=== PATIENT | female | born 1935 | race Caucasian/White ===

== ENCOUNTER 2020-02-09 10:23 | Emergency (ER) | payer MEDICARE, SELFPAY ==
[2020-02-09] VITALS (7 sets, daily range): BP systolic 138–181; BP diastolic 61–92; PULSE 61–78; RESP 11–17; TEMP 37.2; O2SAT 97–100; BMI 25.4
--- NOTE | 2020-02-09 10:46 | ECG_ITS ---
Test Reason : FALL Blood Pressure : / mmHG Vent. Rate : 062 BPM Atrial Rate : 062 BPM P-R Int : 162 ms QRS Dur : 112 ms QT Int : 444 ms P-R-T Axes : 089 -23 030 degrees QTc Int : 450 ms Normal sinus rhythm Voltage criteria for left ventricular hypertrophy Cannot rule out Septal infarct (cited on or before 07-SEP-2019) Abnormal ECG When compared with ECG of 20-SEP-2019 19:42, No significant changes seen Referred By: Vanessa Helton Electronically Signed By:STEPHANIE ART
--- NOTE | 2020-02-09 10:46 | CT_ITS ---
EXAMINATION: HEAD AND CERVICAL SPINE CT WITHOUT CONTRAST CLINICAL INFORMATION: Fall. Head and neck trauma and pain. COMPARISON: Previous head CT and cervical spine CT May 2017 TECHNIQUE: Axial images through the head and cervical spine without contrast. Sagittal and coronal reconstructions on the technologist workstation were performed. Patient dose for combined exam 8 8 1 mg/cm. This CT examination was performed using dose optimization techniques as appropriate, variously including the following: *Automated exposure control *Adjustment of mA and/or kV according to patient size (this includes techniques or standardized protocols for targeted exams where dose is matched to indication/reason for exam; i.e. extremities or head) *Use of iterative reconstruction technique FINDINGS: Head CT: There is no evidence of an extra-axial collection. There is no evidence of intra-axial or extra-axial hemorrhage. Ventricles and extra-axial CSF spaces are prominent suggestive of mild generalized atrophy. There is nonspecific periventricular white matter disease. 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 No mass, mass effect or acute infarct is seen. There are degenerative changes of the temporomandibular joints. Review at bone windows is otherwise normal. No skull fracture is seen. Visualized paranasal sinuses, mastoid air cells and middle ears are clear. Cervical spine CT: No fracture or dislocation is seen. There is mild 2 mm anterior subluxation of C3 with respect to C4. This is unchanged from previous exam. Bone alignment is otherwise normal. There is mild degenerative spondylosis at C3-C4-C5 and C5-C6. Disc spaces are normal. There is mild left-sided facet arthritis at C3-C4 C4-C5 and C5-C6. Prevertebral soft tissues are normal. The visualized lung apices are clear. CT/CT cervical spine wo con IMPRESSION: Head CT: No acute findings. 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 Cervical spine: Mild degenerative changes. No fracture or dislocation seen.
--- NOTE | 2020-02-09 10:46 | XR_ITS ---
EXAMINATION: THORACIC AND LUMBAR SPINE X-RAYS CLINICAL INFORMATION: Fall COMPARISON: Previous CTA of the chest August 2019 TECHNIQUE: 3 views of the thoracic spine and 3 views of the lumbar spine FINDINGS: Thoracic spine: There is increased thoracic kyphosis. There is mild curvature of the mid to lower thoracic spine to the right with apex at T8-T9. Bone alignment is otherwise normal. No fracture or dislocation is seen. There is evidence of multilevel degenerative spondylosis and degenerative disc disease, greatest in the lower thoracic spine. Paraspinal soft tissues are unremarkable. Lumbar spine: There is mild curvature of the lower thoracic and upper lumbar spine to the left with apex at T12-L1. No fracture or dislocation is seen. There is degenerative disc disease at L5-S1. There is lower lumbar spine facet arthritis. There is evidence of atherosclerotic disease. XR/XR lumbar spine 2-3V IMPRESSION: Mild scoliosis and degenerative changes. No fracture seen.
--- NOTE | 2020-02-09 10:46 | XR_ITS ---
EXAMINATION: THORACIC AND LUMBAR SPINE X-RAYS CLINICAL INFORMATION: Fall COMPARISON: Previous CTA of the chest August 2019 TECHNIQUE: 3 views of the thoracic spine and 3 views of the lumbar spine FINDINGS: Thoracic spine: There is increased thoracic kyphosis. There is mild curvature of the mid to lower thoracic spine to the right with apex at T8-T9. Bone alignment is otherwise normal. No fracture or dislocation is seen. There is evidence of multilevel degenerative spondylosis and degenerative disc disease, greatest in the lower thoracic spine. Paraspinal soft tissues are unremarkable. Lumbar spine: There is mild curvature of the lower thoracic and upper lumbar spine to the left with apex at T12-L1. No fracture or dislocation is seen. There is degenerative disc disease at L5-S1. There is lower lumbar spine facet arthritis. There is evidence of atherosclerotic disease. XR/XR thoracic spine 3V IMPRESSION: Mild scoliosis and degenerative changes. No fracture seen.
--- NOTE | 2020-02-09 10:46 | XR_ITS ---
EXAMINATION: XR BILATERAL HIPS WITH AP PELVIS CLINICAL INFORMATION: Fall. Bruising. COMPARISON: Right hip x-ray May 2017 TECHNIQUE: AP view of the pelvis and single views of each hip were obtained. FINDINGS: Bone alignment is normal. No fracture or dislocation is seen. There is mild arthritis at both hip joints with joint space narrowing and osteophyte formation. Bones of the pelvis are unremarkable. Soft tissues are unremarkable. XR/XR hips MIGUELITO min 3V IMPRESSION: No fracture or dislocation seen. Mild arthritis at the hip joints.
--- NOTE | 2020-02-09 10:46 | XR_ITS ---
EXAMINATION: XR RIBS, BILATERAL CLINICAL INFORMATION: Fall. Left rib pain. COMPARISON: Previous chest x-ray and chest CT a August 2019 TECHNIQUE: 3 views of the bilateral ribs and one view chest were obtained. FINDINGS: The cardiac and mediastinal contours are stable. There is an air-fluid level seen projecting over the heart questionable for an esophageal hernia. The lungs are clear. There is no pleural effusion or pneumothorax. XR/XR ribs BI 3V IMPRESSION: No evidence for acute disease in the chest. No rib fracture is seen.
--- NOTE | 2020-02-09 10:49 | ED.FALL ---
HPI - Fall General Chief Complaint: Fall Stated Complaint: fall Time Seen by Provider: 02/09/20 10:36 Source: patient and EMS Mode of arrival: EMS History of Present Illness HPI Narrative: 84-year-old female with a past medical history of CHF, COPD, hypertension, renal failure, ovarian tumor, baby ASA BIBA c/o back pain, neck pain, and L breast pain s/p fall 4 days ago. Admits fell due to unknown reason s/p unlocking door with her walker when son was bringing in groceries, fell backwards, hit head, denies LOC. Denies symptoms prior to fall, however, does not remember why she fell. Has been ambulatory since incident with walker. Denies headache, vision changes, lightheadedness/dizziness, SOB/CP, abdominal pain, nausea/vomiting, weakness MD complaint: fall Onset (ago): day(s) Related Data Allergies Allergy/AdvReac Type Severity Reaction Status Date / Time blue dye [BLUE DYE] Allergy Unknown RASH Unverified 11/18/19 15:35 codeine [CODEINE] Allergy Unknown RASH Unverified 11/18/19 15:35 penicillin G [PENICILLIN G] Allergy Unknown RASH Unverified 11/18/19 15:35 morphine AdvReac Unknown Verified 02/09/20 10:35 Review of Systems Review of Systems: Constitutional: No Weight loss, No Fever, No Chills ENT/Mouth: No Hearing loss, No Ear Pain, No Nasal Congestion, No Sinus Pain, No Hoarseness, No sore throat Eyes: No Eye Pain, No Vision Changes Cardiovascular: +L chest wall/breats pain, No SOB, No Dyspnea on Exertion, No Edema Respiratory: No Cough, No Dyspnea Gastrointestinal: No Nausea, No Vomiting, No Diarrhea,No Abdominal pain Musculoskeletal: + low back and neck pain, No Myalgias, No Joint Swelling Skin: + back ecchymosis, No rash Neuro: No Weakness, + chronic intermittent tingling in upper extremities, No Paresthesias, No Loss of Consciousness, No Dizziness, No Headache Yes all other systems are reviewed and are negative Neurologic: Denies Sensory deficit (Neuro) [facility] Past Medical History Attestation statement: The following information was validated with the patient. Medical History (Updated 02/09/20 @ 15:22 by IDA Stapleton) CHF (congestive heart failure) COPD (chronic obstructive pulmonary disease) HTN (hypertension) Kidney failure Ovarian tumor Surgical History History of appendectomy Social History Social History Advance Directives: No Advance Directives Information Provided: Yes Physical Exam Vital Signs: Vital Signs: Last Vital Signs Temp 99.0 F 02/09/20 10:36 Pulse 66 02/09/20 14:39 Resp 11 L 02/09/20 14:39 BP 138/61 02/09/20 14:39 Pulse Ox 100 02/09/20 14:39 Body Mass Index 25.4 Const: General: cooperative and healthy appearing Orientation/consciousness: patient oriented x3 Limitations: no limitations HENMT: Head: Yes normal to inspection Ears: hearing grossly normal bilaterally General nose exam: Normal external nose present Face and sinus: Yes normal facial exam Mouth: Normal oral and palatal mucosa present Throat: Yes posterior oropharynx normal Eyes: General: appearance normal, both eyes and all related structures Pupils: Equal, round and reactive pupils present EOM: EOMs intact bilaterally Neck: Other: + nonlocalized midline C-spine tenderness, no step-offs Neck: Yes normal visual inspection and Yes no meningeal signs Chest: Other: + left breast with small area of ecchymosis and tenderness to palpation. No crepitus Chest palpation & inspection: no crepitus Resp: Effort & Inspection: normal respiratory effort Auscultation: clear to auscultation bilaterally, no rhonchi and no wheezes Cardio: Rate: regular rate Heart sounds: S1 normal heart sound present and S2 normal heart sound present GI: Inspection: Yes normal to inspection Palpation (GI): Soft to palpation, nontender, no guarding and not rigid Back/Spine/Pelvis: Other: + non localized midline thoracic spinous tenderness throughout + midline lumbar spinous tenderness with swelling and ecchymosis noted. No step-off appreciated Skin: Other: + large ecchymosis noted to lumbar spine extending over bilateral hips Rashes: no rashes Wounds: no wounds Neuro: Other: No saddle anesthesia General: patient oriented x3, tone normal, moves all extremities, no meningeal signs, no focal motor deficits and CN's II-XI intact bilaterally Cranial nerves: Yes Equal, round and reactive pupils present Motor exam (neuro): 5/5 motor strength present throughout Sensory Exam: No Sensory deficit (Neuro) Extrem: Other: FROM to all 4 extremities intact General: Yes normal to inspection Course Course Course Narrative: -1137--EKG NSR w/o ischemic changes -1334- BUN elevated (similar to priors), labs otherwise unremarkable/at patient's baseline. Troponin negative -imaging studies unremarkable > patient ambulating with some difficulty in the ED. Reports multiple falls at home. Will have case management/PT evaluate patient -orthostatic vital signs unremarkable -patient was evaluated by PT and Case Management, already has [facility] at home, physical therapy feels patient can resume those services and is safe to be discharged home. Patient will be picked up from ED by son who gets out of work at 5:00 p.m. MDM - Fall MDM Narrative Medical decision making narrative: 84-year-old female with a past medical history of CHF, COPD, hypertension, renal failure, ovarian tumor, baby ASA BIBA c/o back pain, neck pain, and L breast pain s/p fall 4 days ago. On exam VSS, NAD/well-appearing, physical exam as above. Concern for ICH/fractures vs metabolic abnormalities. Lower concern for infectious etiology or ACS Plan: EKG, labs, UA, imaging, reassess Lab Data Result diagrams: 02/09/20 12:11 02/09/20 12:10 Labs: Lab Results 02/09/20 02/09/20 02/09/20 Range/Units 12:10 12:10 12:10 WBC (4.8-10.8) X10*3/uL RBC (4.20-5.50) X10*6/uL Hgb (12.0-16.0) g/dl Hct (37-47) % MCV (80-98) fL MCH (27.0-33.0) pg MCHC (31.0-35.0) g/dl RDW (11.0-16.0) % Plt Count (160-400) X10*3/uL MPV (9.4-12.3) fL Immature Gran % (Auto) (0.0-0.4) % Neut % (Auto) (45-73) % Lymph % (Auto) (20-40) % Barren % (Auto) (2-11) % Eos % (Auto) (0-4) % Baso % (Auto) (0-2) % Lymph # (Auto) (1.2-4.9) X10*3/uL Barren # (Auto) (0.1-1.2) X10*3/uL Eos # (Auto) (0.0-0.4) X10*3/uL Baso # (Auto) (0.0-0.2) X10*3/uL Abs Immat Gran (auto) (0.00-0.03) X10*3/uL Absolute Neuts (auto) (2.0-8.3) X10*3/uL Absolute Nucleated RBC (0.0-0.012) X10*3/uL Nucleated RBC % (auto) (0.0-0.2) /100WBC Hold Blue Top SEE NOTE Sodium 137 (135-145) mmol/L Potassium 3.9 (3.3-5.1) mmol/l Chloride 104 (96-108) mmol/L Carbon Dioxide 22 (22-29) mmol/L Anion Gap 15 (12-20) BUN 26 H (9-16) mg/dL Creatinine 0.78 (0.5-1.4) mg/dL Estim Creat Clear Calc 43.9 Estimated GFR > 60 Random Glucose 76 (60-115) mg/dL Calcium 9.4 (8.4-10.2) mg/dL Magnesium 2.1 (1.6-2.6) mg/dL Total Bilirubin 0.4 (0.0-1.0) mg/dL Direct Bilirubin 0.2 (0.0-0.5) mg/dL AST 15 (5-31) U/L ALT 11 (0-31) U/L Alkaline Phosphatase 60 (39-117) U/L Troponin I High Sens 4.9 (<3.5-17.0) ng/L Total Protein 6.9 (6.5-8.0) g/dL Albumin 3.7 (3.5-5.0) g/dL Urine Color Urine Appearance Urine pH (5.0-8.0) Ur Specific Grant (1.005-1.025) Urine Protein (NEG-TRACE) MG/DL Urine Glucose (UA) (NEG) MG/DL Urine Ketones (NEG) MG/DL Urine Blood (NEG) Urine Nitrite (NEG) Ur Leukocyte Esterase (NEG) 02/09/20 02/09/20 Range/Units 12:11 13:39 WBC 11.2 H (4.8-10.8) X10*3/uL RBC 4.21 (4.20-5.50) X10*6/uL Hgb 10.5 L (12.0-16.0) g/dl Hct 33.7 L (37-47) % MCV 80.0 (80-98) fL MCH 24.9 L (27.0-33.0) pg MCHC 31.2 (31.0-35.0) g/dl RDW 16.7 H (11.0-16.0) % Plt Count 275 (160-400) X10*3/uL MPV 9.0 L (9.4-12.3) fL Immature Gran % (Auto) 0.9 H (0.0-0.4) % Neut % (Auto) 68.3 (45-73) % Lymph % (Auto) 19.1 L (20-40) % Barren % (Auto) 8.4 (2-11) % Eos % (Auto) 2.8 (0-4) % Baso % (Auto) 0.5 (0-2) % Lymph # (Auto) 2.1 (1.2-4.9) X10*3/uL Barren # (Auto) 0.9 (0.1-1.2) X10*3/uL Eos # (Auto) 0.3 (0.0-0.4) X10*3/uL Baso # (Auto) 0.1 (0.0-0.2) X10*3/uL Abs Immat Gran (auto) 0.10 H (0.00-0.03) X10*3/uL Absolute Neuts (auto) 7.6 (2.0-8.3) X10*3/uL Absolute Nucleated RBC 0.000 (0.0-0.012) X10*3/uL Nucleated RBC % (auto) 0.0 (0.0-0.2) /100WBC Hold Blue Top Sodium (135-145) mmol/L Potassium (3.3-5.1) mmol/l Chloride (96-108) mmol/L Carbon Dioxide (22-29) mmol/L Anion Gap (12-20) BUN (9-16) mg/dL Creatinine (0.5-1.4) mg/dL Estim Creat Clear Calc Estimated GFR Random Glucose (60-115) mg/dL Calcium (8.4-10.2) mg/dL Magnesium (1.6-2.6) mg/dL Total Bilirubin (0.0-1.0) mg/dL Direct Bilirubin (0.0-0.5) mg/dL AST (5-31) U/L ALT (0-31) U/L Alkaline Phosphatase (39-117) U/L Troponin I High Sens (<3.5-17.0) ng/L Total Protein (6.5-8.0) g/dL Albumin (3.5-5.0) g/dL Urine Color STRAW Urine Appearance HAZY Urine pH 8.5 H (5.0-8.0) Ur Specific Grant 1.015 (1.005-1.025) Urine Protein NEG (NEG-TRACE) MG/DL Urine Glucose (UA) NEG (NEG) MG/DL Urine Ketones NEG (NEG) MG/DL Urine Blood NEG (NEG) Urine Nitrite NEG (NEG) Ur Leukocyte Esterase NEG (NEG) Discharge Plan Discharge Clinical Impression: Ecchymosis Back pain Qualifiers: Back pain location: back pain in unspecified location Chronicity: acute Back pain laterality: unspecified Qualified Code(s): M54.9 - Dorsalgia, unspecified Fall Qualifiers: Encounter type: initial encounter Qualified Code(s): W19.XXXA - Unspecified fall, initial encounter Patient Disposition: Home, Self-Care Instructions: Fall Prevention for Older Adults (ED) Additional Instructions: Your blood work, urine, and imaging studies were reassuring today in the ED Take Tylenol home for pain Ice painful areas Make sure your using her walker at home to ambulate Your home health aide and therapy services will continue to home to your house If you continue to fall, pain becomes unbearable, you have weakness, headache, nausea or vomiting return to the ED Referrals: Eldon Matute MD [Primary Care Provider] - 2 days
[2020-02-09 12:18] LABS: MANUAL DIFF FLAG NO
[2020-02-09 12:21] LABS: Basophils Absolute Auto 0.1 X10*3/uL (0.0-0.2); Basophils Percent Auto 0.5 % (0-2); Eosinophils Absolute Auto 0.3 X10*3/uL (0.0-0.4); Eosinophils Percent Auto 2.8 % (0-4); Hematocrit 33.7 % (37-47); Hemoglobin 10.5 g/dl (12.0-16.0); Imm Gran Pct Auto 0.9 % (0.0-0.4); Lymphocytes Absolute Auto 2.1 X10*3/uL (1.2-4.9); Lymphocytes Percent Auto 19.1 % (20-40); Mean Corpuscular HGB Conc 31.2 g/dl (31.0-35.0); Mean Corpuscular Hemoglobin 24.9 pg (27.0-33.0); Monocytes Absolute Auto 0.9 X10*3/uL (0.1-1.2); Monocytes Percent Auto 8.4 % (2-11); Neutrophils Absolute Auto 7.6 X10*3/uL (2.0-8.3); Neutrophils Percent Auto 68.3 % (45-73); Platelet Count 275 X10*3/uL (160-400); Red Blood Count 4.21 X10*6/uL (4.20-5.50); Red Cell Distribution Width 16.7 % (11.0-16.0); White Blood Count 11.2 X10*3/uL (4.8-10.8)
--- NOTE | 2020-02-09 12:30 | PC.NURSE ---
Daughter Daughter in [place] phone number [phone]
[2020-02-09 12:59] LABS: Alanine Aminotransferase 11 U/L (0-31); Albumin Level 3.7 g/dL (3.5-5.0); Alkaline Phosphatase 60 U/L (39-117); Anion Gap 15 (12-20); Aspartate Amino Transferase 15 U/L (5-31); Bilirubin Direct 0.2 mg/dL (0.0-0.5); Bilirubin Total 0.4 mg/dL (0.0-1.0); Blood Urea Nitrogen 26 mg/dL (9-16); Calcium 9.4 mg/dL (8.4-10.2); Carbon Dioxide 22 mmol/L (22-29); Chloride 104 mmol/L (96-108); Creatinine Clr Calc Pharmacy 43.9; Estimated Glomerular Filt Rate > 60; Glucose Random 76 mg/dL (60-115); Magnesium 2.1 mg/dL (1.6-2.6); Potassium 3.9 mmol/l (3.3-5.1); Sodium 137 mmol/L (135-145); Total Protein 6.9 g/dL (6.5-8.0)
[2020-02-09 13:01] LABS: Troponin-I High Sensitivity 4.9 ng/L (<3.5-17.0)
[2020-02-09 13:47] LABS: Appearance Urine HAZY; Color Urine STRAW; Glucose Urine UA NEG (NEG); Leukocyte Esterase Urine NEG (NEG); Nitrite Urine NEG (NEG); PH 8.5 (5.0-8.0); Specific Gravity - Urine 1.015 (1.005-1.025); Urine Blood NEG (NEG); Urine Ketones NEG (NEG); Urine Protein NEG (NEG-TRACE)
--- NOTE | 2020-02-09 14:25 | MHC.CM.ED ---
Addendum entered by Gely Soares 02/09/20 14:31: PT is 2x/wk. Original Note: Met with pt. A&O x3. Very pleasant and talkative. S/P fall on Friday. Does not want to go to SNF. Was at [facility] for 3 months. Presently has home PT through [facility] 2x?wk and has home health aides 3x/wk through [facility]. PT evaluation recommends home with resumption of present services. Pt uses walker at home and has a shower chair with a rail. Son lives with her and is home after 5pm. Referral to [facility] to verify services. Will monitor for d/c needs
--- NOTE | 2020-02-09 15:31 | MHC.CM.ED ---
Services with [facility] [place] are active. Will accept pt. PT recommends home with resumption of services. All clinicals sent to [facility]. Spoke with daughter, Mary,([phone]) who is her HCP. Updated with plan. Is agreeable. Son, Tai will provide transportation home at 1630. RN and Provider aware.
== END 2020-02-09 17:10 | disposition home or self-care (01) ==
PROVIDERS: Physician Assistant; Emergency Provider Emergency Medicine; PCP Family Medicine
DX: S20.02XA Contusion of left breast, initial encounter (principal); W18.30XA Fall on same level, unspecified, initial encounter; M54.9 Dorsalgia, unspecified; I13.0 Hypertensive heart and chronic kidney disease with heart failure and stage 1 through stage 4 chronic kidney disease, or unspecified chronic kidney disease; N18.9 Chronic kidney disease, unspecified; I50.9 Heart failure, unspecified; Y93.9 Activity, unspecified; Y92.019 Unspecified place in single-family (private) house as the place of occurrence of the external cause; Y99.9 Unspecified external cause status
CPT/HCPCS: 36415; 70450; 71110; 72072; 72100; 72125; 72170; 73522; 80048; 80076; 81003; 83735; 84484; 85025; 93005; 97161; 99284

== ENCOUNTER 2021-02-08 10:13 | Inpatient (IN) | payer MEDICARE, SELFPAY ==
[2021-02-08] VITALS (13 sets, daily range): BP systolic 147–170; BP diastolic 52–70; PULSE 86–94; RESP 16–24; TEMP 36.7–37.3; O2SAT 92–100; BMI 30.2; BMI 33.3
--- NOTE | ~2021-02-08 | CT_ITS ---
EXAMINATION: CT ABDOMEN AND PELVIS WITHOUT CONTRAST CLINICAL INFORMATION: Abdominal pain and vomiting COMPARISON: 09/20/2019 TECHNIQUE: Multidetector volumetric imaging was performed from the superior aspect of the liver through the pubic symphysis. Sagittal and coronal reformatted images were obtained on the technologist's workstation. This CT examination was performed using dose optimization techniques as appropriate, variously including the following: *Automated exposure control *Adjustment of mA and/or kV according to patient size (this includes techniques or standardized protocols for targeted exams where dose is matched to indication/reason for exam; i.e. extremities or head) *Use of iterative reconstruction technique DLP: 519 mGy-cm FINDINGS: LUNG BASES: Minimal bibasilar atelectasis. The heart is enlarged with coronary artery calcifications. Moderate hiatal hernia noted. LIVER, GALLBLADDER, AND BILIARY TREE: The liver is normal in size, shape, and attenuation. No focal hepatic lesion. Cholecystectomy. The common bile duct is prominent, measuring 1 cm. No ductal filling defect. Persistent intrahepatic ductal dilatation also noted. PANCREAS: Moderate atrophy with no focal abnormality. SPLEEN: Unremarkable. ADRENAL GLANDS: Unremarkable. KIDNEYS AND URETERS: The kidneys are normal in size, shape, and attenuation. No hydronephrosis, hydroureter, or calculi seen. No perinephric stranding. Exophytic simple cyst at the upper pole of the left kidney. Simple cyst at the upper pole of the right kidney. No follow-up imaging recommended. Calcifications peripherally along the lower pole of the left kidney. BLADDER: Unremarkable. GASTROINTESTINAL TRACT: Moderate hiatal hernia. The stomach is otherwise unremarkable. Normal caliber small bowel. No obstruction. No colonic wall thickening or acute inflammatory change. No free air or free fluid. ABDOMINAL WALL: Fat-containing ventral abdominal wall hernia. LYMPH NODES: Normal. VASCULAR: Normal caliber aorta with mild atherosclerotic calcification. PELVIC VISCERA: The uterus is not seen. No adnexal mass. OSSEOUS STRUCTURES: No acute or suspicious osseous abnormality. Degenerative changes of the spine. CT/CT abdomen pelvis wo con IMPRESSION: No acute findings in the abdomen or pelvis. No obstruction. No inflammatory changes. Moderate hiatal hernia noted. This is similar to previous. Fleischner guidelines were followed.
--- NOTE | ~2021-02-08 | XR_ITS ---
EXAMINATION: XR CHEST CLINICAL INFORMATION: Pain COMPARISON: 02/09/2020 TECHNIQUE: Frontal view of the chest was obtained. FINDINGS: Lung volumes are low. Opacity in the retrocardiac region likely corresponds to the known hiatal hernia. No dense consolidation. No edema. No significant effusion. No pneumothorax. The cardiomediastinal silhouette is unchanged. No acute osseous abnormality. XR/XR chest 1V IMPRESSION: Hiatal hernia noted. No acute pulmonary finding.
--- NOTE | ~2021-02-08 | CT_ITS ---
EXAMINATION: CT HEAD WITHOUT CONTRAST CLINICAL INFORMATION: Headache. Dizziness. COMPARISON: 02/09/2020 TECHNIQUE: Contiguous axial imaging was performed from the skull base to vertex without intravenous contrast. This CT examination was performed using dose optimization techniques as appropriate, variously including the following: * Automated exposure control * Adjustment of mA and/or kV according to patient size (this includes techniques or standardized protocols for targeted exams where dose is matched to indication/reason for exam; i.e. extremities or head) Use of iterative reconstruction technique DLP: 653 mGy-cm. FINDINGS: There is no evidence of acute intracranial hemorrhage or territorial infarction. No abnormal mass effect or midline shift is seen. Souza to white matter differentiation is well preserved. No extra-axial fluid collections are identified. No hydrocephalus. Proportional prominence of the ventricles and sulcal spaces is consistent with mild volume loss. Patchy periventricular and deep white matter hypoattenuation is consistent with mild small vessel ischemic changes. 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 The osseous structures and soft tissues are normal. The mastoid air cells and visualized portions of the paranasal sinuses are well aerated. CT/CT head/brain wo con IMPRESSION: No acute intracranial pathology. Mild chronic volume loss with small vessel ischemic change.
--- NOTE | 2021-02-08 10:35 | ECG_ITS ---
Test Reason : cp Blood Pressure : / mmHG Vent. Rate : 089 BPM Atrial Rate : 089 BPM P-R Int : 188 ms QRS Dur : 116 ms QT Int : 384 ms P-R-T Axes : 087 -18 086 degrees QTc Int : 467 ms Normal sinus rhythm Left ventricular hypertrophy with QRS widening and repolarization abnormality ( R in aVL , [place] product ) Abnormal ECG When compared with ECG of 09-FEB-2020 11:32, Minimal criteria for Septal infarct are no longer Present Referred By: Kanchan Albarado Electronically Signed By:Bjorn Man
--- NOTE | 2021-02-08 10:51 | ED.GENADULT ---
HPI - General Adult General Chief complaint: General Medical Stated complaint: THROAT & EAR PAIN,+ VACCINES Time Seen by Provider: 02/08/21 10:35 Source: patient Mode of arrival: EMS Limitations: no limitations History of Present Illness MD complaint: ear pain, sore throat, dizziness, nausea, upper abdominal pain Onset (ago): week(s) (2) Location: head, mouth, chest and abdomen Radiation: non-radiation Severity: moderate Quality: aching Pain Consistency: constant Relieving factors: none Exacerbating factors: movement (states she is too weak she cannot get up and she is home alone all day) Associated symptoms: chest pain, loss of appetite, malaise, nausea/vomiting and weakness Treatments prior to arrival: none Related Data Home Medications Medication Instructions Recorded Confirmed albuterol sulfate 90 mcg/actuation 2 puff INHALATION Q4H PRN 02/08/21 02/08/21 aerosol inhaler amlodipine 5 mg tablet 1 tab PO DAILY 02/08/21 02/08/21 aspirin 81 mg tablet,delayed 1 tab PO DAILY 02/08/21 02/08/21 release fluoxetine 20 mg capsule 1 cap PO DAILY 02/08/21 02/08/21 furosemide 20 mg tablet 1 tab PO DAILY 02/08/21 02/08/21 gabapentin 300 mg capsule 1 cap PO TID 02/08/21 02/08/21 loratadine 10 mg tablet 1 tab PO DAILY 02/08/21 02/08/21 melatonin 3 mg tablet 2 tab PO BEDTIME 02/08/21 02/08/21 metoprolol succinate 25 mg 1 tab PO DAILY 02/08/21 02/08/21 tablet,extended release 24 hr montelukast 10 mg tablet 1 tab PO DAILY 02/08/21 02/08/21 ropinirole 0.25 mg tablet 1 tab PO BEDTIME 02/08/21 02/08/21 Allergies Allergy/AdvReac Type Severity Reaction Status Date / Time blue dye [BLUE DYE] Allergy Unknown RASH Unverified 11/18/19 15:35 codeine [CODEINE] Allergy Unknown RASH Unverified 11/18/19 15:35 penicillin G [PENICILLIN G] Allergy Unknown RASH Unverified 11/18/19 15:35 morphine AdvReac Unknown Verified 02/09/20 10:35 Review of Systems Review of Systems: Constitutional : No Weight loss, No Fever, No Chills, pos Fatigue, pos Malaise ENT/Mouth : pos sore throat, No Rhinorrhea, pos ear pain Eyes: No Eye Pain, No Swelling, No Redness Cardiovascular : pos Chest Pain, No SOB, No Dyspnea on Exertion, No Orthopnea, No Edema, No Palpitations Respiratory : No Cough, No Sputum, No Wheezing Gastrointestinal : pos Nausea, No Vomiting, No Diarrhea, No Constipation,pos abdominal Pain, No Hematochezia, No Melena Genitourinary : No Dysuria, No Urinary Frequency, No Hematuria, Musculoskeletal : No joint pain, No Myalgias, No Joint Swelling Skin : No Skin Lesions, No rash Neuro : pos Weakness, No Numbness, pos Dizziness, pos Headache Psych : No Anxiety/Panic, No Depression Heme/Lymph: No Bruising, No Bleeding,No Lymphadenopathy Endocrine : No Polyuria, No Polydipsia All other systems reviewed and are negative [facility] Past Medical History Medical History (Updated 02/08/21 @ 14:30 by IDA Lugo) CHF (congestive heart failure) COPD (chronic obstructive pulmonary disease) COVID-19 HTN (hypertension) Ovarian tumor Surgical History (Updated 02/08/21 @ 14:30 by IDA Lugo) History of appendectomy History of cholecystectomy History of kidney surgery Family History Family History (Updated 02/08/21 @ 14:41 by IDA Lugo) Father PUD (peptic ulcer disease) Social History Social History (Updated 02/08/21 @ 14:41 by IDA Lugo) Household Members: Family Alcohol intake: current Alcohol intake frequency: a few times a week Alcohol type: wine Patient Tobacco Use Status: Former Tobacco user Use of substances other than those prescribed or required for medical reasons: No Advance Directives: Yes Advance Directives on File: Yes Advance Directives Date on File: 02/09/20 Physical Exam Vital Signs: Vital Signs: Last Vital Signs Temp 98.5 F 02/08/21 14:38 Pulse 94 02/08/21 14:38 Resp 20 02/08/21 14:38 BP 164/52 H 02/08/21 14:38 Pulse Ox 100 02/08/21 14:01 BMI result Body Mass Index 30.2 Appearance: Alert. Oriented X3. No acute distress. Anxious Eyes: Pupils equal, round and reactive to light. ENT: Pharynx normal. Bilateral TMs normal Neck: Normal inspection. Neck supple. CVS: Normal heart rate and rhythm. Pulses normal. Respiratory: No respiratory distress. Breath sounds normal. Abdomen: Soft and nontender. Rectal: light brown stool Skin: Skin warm and dry. pale skin color. Normal skin turgor. Extremities: No lower extremity edema. No calf ttp Neuro: Oriented X 3. No motor deficit. No sensory deficit. Course Course Course Narrative: after H/H resulted the patient now states that she has had intermittent black stools x 2 weeks and in [place] 1 year ago was told she had GIB and was transfused cannot tell me the name of the hospital colonoscopy 2 years ago 2 UPRBCs ordered, BP stable, protonix gtt started c/o black stools and upper abdominal pain x 2 weeks patient only takes tylenol OTC Dr. Calderón aware Procedures EJ/Peripheral Line Neck R: Time Out Performed: Yes Skin Cleansed in Sterile Fashion: Yes Size (gauge): 18 IV Secured and Dressing Applied: No Patient Tolerated Procedure: well and no complications Medical Decision Making [facility] Narrative Medical decision making narrative: 85 yo female from home hx of COPD, HTN, CHF, here with c/o 2 weeks of feeling sick - grossly positive ROS - ear pain, sore throat, nausea, dizziness, abdominal pain, chest pain, dizziness when standing vaccinated against COVID and recovered from COVID last year - she is very fixated about going home today and is adamant she cannot be at home as she is alone for most of the day and her son cannot take care of her. At this time labs, EKG, CT head for dizziness, CT abdomen given pain and nausea, FLU/RSV. Dispo per results and findings. Lab Data Result diagrams: 02/08/21 11:42 02/08/21 11:42 Labs: Lab Results 02/08/21 02/08/21 02/08/21 Range/Units 11:42 11:42 11:42 WBC 10.6 (4.8-10.8) X10*3/uL RBC 2.64 L (4.20-5.50) X10*6/uL Hgb 4.8 L* (12.0-16.0) g/dl Hct 17.2 L* (37.0-47.0) % MCV 65.2 L (80.0-98.0) fL MCH 18.2 L (27.0-33.0) pg MCHC 27.9 L (31.0-35.0) g/dl RDW 20.2 H (11.0-16.0) % Plt Count 305 (160-400) X10*3/uL MPV 8.6 L (9.4-12.3) fL Immature Gran % (Auto) 0.7 H (0.0-0.4) % Neut % (Auto) 77.3 H (45-73) % Lymph % (Auto) 9.8 L (20-40) % [place] % (Auto) 9.4 (2-11) % Eos % (Auto) 2.3 (0-4) % Baso % (Auto) 0.5 (0-2) % Lymph # (Auto) 1.0 L (1.2-4.9) X10*3/uL [place] # (Auto) 1.0 (0.1-1.2) X10*3/uL Eos # (Auto) 0.2 (0.0-0.4) X10*3/uL Baso # (Auto) 0.1 (0.0-0.2) X10*3/uL Abs Immat Gran (auto) 0.07 H (0.00-0.03) X10*3/uL Absolute Neuts (auto) 8.2 (2.0-8.3) x10*3/uL Absolute Nucleated RBC 0.020 H (0.0-0.012) X10*3/uL Nucleated RBC % (auto) 0.2 (0.0-0.2) /100WBC Sodium 137 (135-145) mmol/L Potassium 4.2 (3.3-5.1) mmol/L Chloride 107 (96-108) mmol/L Carbon Dioxide 23 (22-29) mmol/L Anion Gap 11 L (12-20) BUN 24 H (9-16) mg/dL Creatinine 0.89 (0.5-1.4) mg/dL Estim Creat Clear Calc 36.0 Estimated GFR > 60 Random Glucose 85 (60-115) mg/dL Calcium 9.6 (8.4-10.2) mg/dL Magnesium 2.0 (1.6-2.6) mg/dL Total Bilirubin 0.2 (0.0-1.0) mg/dL Direct Bilirubin 0.2 (0.0-0.5) mg/dL AST 14 (5-31) U/L ALT 11 (0-31) U/L Alkaline Phosphatase 43 D (39-117) U/L Troponin I High Sens (<3.5-17.0) ng/L B-Natriuretic Peptide 260 H (<100) pg/mL Total Protein 6.2 L (6.5-8.0) g/dL Albumin 3.7 (3.5-5.0) g/dL Lipase 30 (8-78) U/L Stool Occult Blood (NEGATIVE) Influenza Type A (PCR) (Negative) Influenza Type B (PCR) (Negative) RSV RNA Qual (PCR) (Negative) SARS-CoV-2 RNA (RT-PCR) (Negative) Blood Type Antibody Screen Crossmatch 02/08/21 02/08/21 02/08/21 Range/Units 11:42 11:42 12:25 WBC (4.8-10.8) X10*3/uL RBC (4.20-5.50) X10*6/uL Hgb (12.0-16.0) g/dl Hct (37.0-47.0) % MCV (80.0-98.0) fL MCH (27.0-33.0) pg MCHC (31.0-35.0) g/dl RDW (11.0-16.0) % Plt Count (160-400) X10*3/uL MPV (9.4-12.3) fL Immature Gran % (Auto) (0.0-0.4) % Neut % (Auto) (45-73) % Lymph % (Auto) (20-40) % [place] % (Auto) (2-11) % Eos % (Auto) (0-4) % Baso % (Auto) (0-2) % Lymph # (Auto) (1.2-4.9) X10*3/uL [place] # (Auto) (0.1-1.2) X10*3/uL Eos # (Auto) (0.0-0.4) X10*3/uL Baso # (Auto) (0.0-0.2) X10*3/uL Abs Immat Gran (auto) (0.00-0.03) X10*3/uL Absolute Neuts (auto) (2.0-8.3) x10*3/uL Absolute Nucleated RBC (0.0-0.012) X10*3/uL Nucleated RBC % (auto) (0.0-0.2) /100WBC Sodium (135-145) mmol/L Potassium (3.3-5.1) mmol/L Chloride (96-108) mmol/L Carbon Dioxide (22-29) mmol/L Anion Gap (12-20) BUN (9-16) mg/dL Creatinine (0.5-1.4) mg/dL Estim Creat Clear Calc Estimated GFR Random Glucose (60-115) mg/dL Calcium (8.4-10.2) mg/dL Magnesium (1.6-2.6) mg/dL Total Bilirubin (0.0-1.0) mg/dL Direct Bilirubin (0.0-0.5) mg/dL AST (5-31) U/L ALT (0-31) U/L Alkaline Phosphatase (39-117) U/L Troponin I High Sens 8.8 (<3.5-17.0) ng/L B-Natriuretic Peptide (<100) pg/mL Total Protein (6.5-8.0) g/dL Albumin (3.5-5.0) g/dL Lipase (8-78) U/L Stool Occult Blood POSITIVE (NEGATIVE) Influenza Type A (PCR) NEGATIVE (Negative) Influenza Type B (PCR) NEGATIVE (Negative) RSV RNA Qual (PCR) NEGATIVE (Negative) SARS-CoV-2 RNA (RT-PCR) NEGATIVE (Negative) Blood Type Antibody Screen Crossmatch 02/08/21 Range/Units 12:36 WBC (4.8-10.8) X10*3/uL RBC (4.20-5.50) X10*6/uL Hgb (12.0-16.0) g/dl Hct (37.0-47.0) % MCV (80.0-98.0) fL MCH (27.0-33.0) pg MCHC (31.0-35.0) g/dl RDW (11.0-16.0) % Plt Count (160-400) X10*3/uL MPV (9.4-12.3) fL Immature Gran % (Auto) (0.0-0.4) % Neut % (Auto) (45-73) % Lymph % (Auto) (20-40) % [place] % (Auto) (2-11) % Eos % (Auto) (0-4) % Baso % (Auto) (0-2) % Lymph # (Auto) (1.2-4.9) X10*3/uL [place] # (Auto) (0.1-1.2) X10*3/uL Eos # (Auto) (0.0-0.4) X10*3/uL Baso # (Auto) (0.0-0.2) X10*3/uL Abs Immat Gran (auto) (0.00-0.03) X10*3/uL Absolute Neuts (auto) (2.0-8.3) x10*3/uL Absolute Nucleated RBC (0.0-0.012) X10*3/uL Nucleated RBC % (auto) (0.0-0.2) /100WBC Sodium (135-145) mmol/L Potassium (3.3-5.1) mmol/L Chloride (96-108) mmol/L Carbon Dioxide (22-29) mmol/L Anion Gap (12-20) BUN (9-16) mg/dL Creatinine (0.5-1.4) mg/dL Estim Creat Clear Calc Estimated GFR Random Glucose (60-115) mg/dL Calcium (8.4-10.2) mg/dL Magnesium (1.6-2.6) mg/dL Total Bilirubin (0.0-1.0) mg/dL Direct Bilirubin (0.0-0.5) mg/dL AST (5-31) U/L ALT (0-31) U/L Alkaline Phosphatase (39-117) U/L Troponin I High Sens (<3.5-17.0) ng/L B-Natriuretic Peptide (<100) pg/mL Total Protein (6.5-8.0) g/dL Albumin (3.5-5.0) g/dL Lipase (8-78) U/L Stool Occult Blood (NEGATIVE) Influenza Type A (PCR) (Negative) Influenza Type B (PCR) (Negative) RSV RNA Qual (PCR) (Negative) SARS-CoV-2 RNA (RT-PCR) (Negative) Blood Type B Positive Antibody Screen NEGATIVE Crossmatch See Detail ECG Data Attestation: I personally reviewed and interpreted this ECG as follows: Interpretation: Rate: 89 Rhythm: NSR [place]: left, LVH Normal P waves. Normal CHIDI. Normal QRS complex. ST T wave : no LUL, nonspecific inversion with LVH qTC: normal prior studies: no change September 2019 The study has been interpreted contemporaneously by me. . Critical Care Time Critical Care Time Critical Care Time: Yes Total Critical Care Time: 60 Attestation: review of records, discussion with family, medical consult, transfusion 2 UPRBCs I attest to this time spent taking care of the patient Discharge Plan Discharge Clinical Impression: Weakness, Acute upper GI bleed Anemia Qualifiers: Anemia type: unspecified type Qualified Code(s): D64.9 - Anemia, unspecified Patient Disposition: Admitted As Inpatient
--- NOTE | 2021-02-08 11:20 | PHA.MEDREC ---
Pharmacy Consult ? Medication Reconciliation Pharmacy has completed the medication reconciliation.
[2021-02-08] MEDS: ondansetron HCL 4 MG/2 ML VIAL IVPUSH (11:24)
[2021-02-08 11:48] LABS: MANUAL DIFF FLAG NO
[2021-02-08 11:49] LABS: Basophils Absolute Auto 0.1 X10*3/uL (0.0-0.2); Basophils Percent Auto 0.5 % (0-2); Eosinophils Absolute Auto 0.2 X10*3/uL (0.0-0.4); Eosinophils Percent Auto 2.3 % (0-4); Imm Gran Abs Auto 0.07 X10*3/uL (0.00-0.03); Imm Gran Pct Auto 0.7 % (0.0-0.4); Lymphocytes Percent Auto 9.8 % (20-40); Mean Corpuscular HGB Conc 27.9 g/dl (31.0-35.0); Mean Corpuscular Hemoglobin 18.2 pg (27.0-33.0); Mean Corpuscular Volume 65.2 fL (80.0-98.0); Mean Platelet Volume 8.6 fL (9.4-12.3); Monocytes Percent Auto 9.4 % (2-11); NRBC Pct Auto 0.2 /100WBC (0.0-0.2); Neutrophils Absolute Auto 8.2 x10*3/uL (2.0-8.3); Neutrophils Percent Auto 77.3 % (45-73); Platelet Count 305 X10*3/uL (160-400); Red Blood Count 2.64 X10*6/uL (4.20-5.50); Red Cell Distribution Width 20.2 % (11.0-16.0); White Blood Count 10.6 X10*3/uL (4.8-10.8)
[2021-02-08 11:54] LABS: Hematocrit 17.2 % (37.0-47.0)
[2021-02-08 11:56] LABS: Hemoglobin 4.8 g/dl (12.0-16.0)
[2021-02-08 12:10] LABS: Alanine Aminotransferase 11 U/L (0-31); Albumin Level 3.7 g/dL (3.5-5.0); Alkaline Phosphatase 43 U/L (39-117); Anion Gap 11 (12-20); Aspartate Amino Transferase 14 U/L (5-31); Bilirubin Direct 0.2 mg/dL (0.0-0.5); Bilirubin Total 0.2 mg/dL (0.0-1.0); Blood Urea Nitrogen 24 mg/dL (9-16); Calcium 9.6 mg/dL (8.4-10.2); Carbon Dioxide 23 mmol/L (22-29); Chloride 107 mmol/L (96-108); Estimated Glomerular Filt Rate > 60; Glucose Random 85 mg/dL (60-115); Lipase 30 U/L (8-78); Potassium 4.2 mmol/L (3.3-5.1); Sodium 137 mmol/L (135-145); Total Protein 6.2 g/dL (6.5-8.0)
[2021-02-08 12:15] LABS: B Type Natriuretic Peptide 260 pg/mL (<100); Troponin-I High Sensitivity 8.8 ng/L (<3.5-17.0)
[2021-02-08 12:29] LABS: OBS Int Ctl Valid YES; OBS1 POSITIVE (NEGATIVE)
[2021-02-08 12:34] LABS: Influenza A PCR NEGATIVE (Negative); Influenza B PCR NEGATIVE (Negative); Resp Syncy Virus RNA Qual PCR NEGATIVE (Negative); SARS COV2 PCR INHOUSE NEGATIVE (Negative)
[2021-02-08] MEDS: Pantoprazole Sodium 80 MG in 0.9 % Sodium Chloride 80 ML 10 MG IV ×2 (13:20→22:07)
[2021-02-08] MEDS: Pantoprazole Sodium 40 MG/10 ML VIAL IVPUSH (13:20)
--- NOTE | 2021-02-08 14:16 | PM.IMHP ---
History of Present Illness Date of Service: 02/08/21 <IDA Lugo - Last Filed: 02/08/21 15:02> Attending physician on admission: Wes Bazzi <IDA Lugo Last Filed: 02/08/21 15:02> Chief Complaint: weakness, sore throat, abdominal pain <IDA Lugo Last Filed: 02/08/21 15:02> This is an 85 year old female who presents to the ED with multiple complaints. For the past two weeks she has not been feeling well. She reports ear pain, sore throat, headache, shortness of breath, generalized abdominal pain as well as generalized weakness. She reports 2 weeks of dark stools. She has had nausea but no vomiting, no diarrhea. She denies the use of NSAIDs. She takes a baby aspirin daily, no blood thinners. In the ED, lab work was significant for H/H of 4.8/17.2. The remainder of her lab work was unremarkable. Blood pressure has been elevated, mild tachycardia. Two units of blood have been ordered but not yet transfused. The decision was made to admit her to the hospital for management of anemia. <IDA Lugo - Last Filed: 02/08/21 15:02> Review of Systems Constitutional: Constitutional: Reports headache(s), Reports lethargy and Reports poor appetite <IDA Lugo Last Filed: 02/08/21 15:02> ENT: Reports dizziness, Reports headache(s) and Reports sore throat <IDA Lugo Last Filed: 02/08/21 15:02> Cardiovascular: Cardiovascular: Reports dyspnea <IDA Lugo Last Filed: 02/08/21 15:02> Respiratory: Respiratory: Reports dyspnea <IDA Lugo Last Filed: 02/08/21 15:02> Gastrointestinal: Gastrointestinal: Reports melena, Reports excessive flatus and Reports nausea <IDA Lugo Last Filed: 02/08/21 15:02> Musculoskeletal: Musculoskeletal: Reports myalgias <IDA Lugo Last Filed: 02/08/21 15:02> Neurologic: Reports dizziness and Reports headache(s) <IDA Lugo - Last Filed: 02/08/21 15:02> [facility] Medical History: Medical History (Updated 02/08/21 @ 14:30 by IDA Lugo) CHF (congestive heart failure) COPD (chronic obstructive pulmonary disease) COVID-19 HTN (hypertension) Ovarian tumor <IDA Lugo - Last Filed: 02/08/21 15:02> Functional capacity: independent ambulation <IDA Lugo - Last Filed: 02/08/21 15:02> Family History: Family History (Updated 02/08/21 @ 14:41 by IDA Lugo) Father PUD (peptic ulcer disease) <IDA Lugo - Last Filed: 02/08/21 15:02> Pertinent family history: no history of gastic cancer <IDA Lugo - Last Filed: 02/08/21 15:02> Surgical History: Surgical History (Updated 02/08/21 @ 14:30 by IDA Lugo) History of appendectomy History of cholecystectomy History of kidney surgery <IDA Lugo - Last Filed: 02/08/21 15:02> Social History: Social History (Updated 02/08/21 @ 14:41 by IDA Lugo) Household Members: Family and Other Housing: House Do you presently have visiting nurse or other home services: Yes Alcohol intake: current Alcohol intake frequency: a few times a week Alcohol type: wine Patient Tobacco Use Status: Former Tobacco user Use of substances other than those prescribed or required for medical reasons: No Currently Displaying Signs/Symptoms of Drug Intoxication Withdrawal: No Have you been hit, kicked, punched, or otherwise hurt by someone within the past year? If so, by whom?: No Do you feel safe in your current relationship?: No Is there a partner from a previous relationship who is making you feel unsafe now?: No Are you made to feel afraid or neglected: No Advance Directives: Yes Advance Directives on File: Yes Advance Directives Date on File: 02/09/20 Do you have thoughts of harming others: None Do you have a plan to hurt others: No Plan Recently lost weight without trying: No Eating poorly because of decreased appetite: No Nutrition Risks: No Nutritional Risk service: No Current occupational status: retired <IDA Lugo - Last Filed: 02/08/21 15:02> Meds Allergies/Adverse reactions: Allergies Allergy/AdvReac Type Severity Reaction Status Date / Time blue dye [BLUE DYE] Allergy Unknown RASH Unverified 11/18/19 15:35 codeine [CODEINE] Allergy Unknown RASH Unverified 11/18/19 15:35 penicillin G [PENICILLIN G] Allergy Unknown RASH Unverified 11/18/19 15:35 morphine AdvReac Unknown Verified 02/09/20 10:35 <IDA Lugo - Last Filed: 02/08/21 15:02> Active Medications: Current Medications Acetaminophen (Acetaminophen 325 Mg Tablet) 650 mg PO Q6H PRN PRN Reason: Pain, Mild (Pain Scale 1-3) Albuterol Sulfate (Albuterol Sulfate 90 Mcg 8 Gm Inhaler) 2 puff INHALE Q4H PRN PRN Reason: wheezing Fluoxetine HCl (Fluoxetine Hcl 20 Mg Capsule) 20 mg PO DAILY SHANTHI Gabapentin (Gabapentin 300 Mg Capsule) 300 mg PO TID SHANTHI Pantoprazole Sodium 80 mg/ (Sodium Chloride) 100 mls @ 10 mls/hr IV .Q10H SHANTHI Last Admin: 02/08/21 13:20 Dose: 8 mg/hr, 10 mls/hr Documented by: Loratadine (Loratadine 10 Mg Tablet) 10 mg PO DAILY SHANTHI Ondansetron HCl (Ondansetron Hcl 4 Mg/2 Ml Vial) 4 mg IVPUSH Q8H PRN PRN Reason: Nausea and Vomiting Pharmacy Consult (Consult Rx Perform Med Rec) 1 each MISCELLANE ONCE PRN PRN Reason: Consult order Ropinirole HCl (Ropinirole Hcl 0.25 Mg Tablet) 0.25 mg PO BEDTIME SHANTHI Sodium Chloride (0.9 % Sodium Chloride Flush 3 Ml Syringe) 3 ml IVFLUSH QSHIFT SHANTHI <IDA Lugo - Last Filed: 02/08/21 15:02> Home medications: Home Medications Medication Instructions Recorded Confirmed Last Taken Type albuterol sulfate 90 mcg/actuation 2 puff INHALATION Q4H PRN 02/08/21 02/08/21 Unknown History aerosol inhaler amlodipine 5 mg tablet 1 tab PO DAILY 02/08/21 02/08/21 Unknown History aspirin 81 mg tablet,delayed 1 tab PO DAILY 02/08/21 02/08/21 Unknown History release fluoxetine 20 mg capsule 1 cap PO DAILY 02/08/21 02/08/21 Unknown History furosemide 20 mg tablet 1 tab PO DAILY 02/08/21 02/08/21 Unknown History gabapentin 300 mg capsule 1 cap PO TID 02/08/21 02/08/21 Unknown History loratadine 10 mg tablet 1 tab PO DAILY 02/08/21 02/08/21 Unknown History melatonin 3 mg tablet 2 tab PO BEDTIME 02/08/21 02/08/21 Unknown History metoprolol succinate 25 mg 1 tab PO DAILY 02/08/21 02/08/21 Unknown History tablet,extended release 24 hr montelukast 10 mg tablet 1 tab PO DAILY 02/08/21 02/08/21 Unknown History ropinirole 0.25 mg tablet 1 tab PO BEDTIME 02/08/21 02/08/21 Unknown History <IDA Lugo - Last Filed: 02/08/21 15:02> Physical Exam Vital Signs and Narrative: Vital Signs: Last Vital Signs Temp 98.1 F 02/08/21 10:21 Pulse 94 02/08/21 14:01 Resp 24 H 02/08/21 14:01 BP 170/65 H 02/08/21 14:01 Pulse Ox 100 02/08/21 14:01 BMI result Body Mass Index 30.2 <IDA Lugo - Last Filed: 02/08/21 15:02> Const: General: comfortable, alert and awake <IDA Lugo - Last Filed: 02/08/21 15:02> Nutritional Appearance: overweight <IDA Lugo Last Filed: 02/08/21 15:02> Orientation/consciousness: patient oriented x3 <IDA Lugo - Last Filed: 02/08/21 15:02> HENMT: Head: Yes normocephalic and Yes atraumatic <IDA Lugo Last Filed: 02/08/21 15:02> Eyes: Sclerae: sclerae normal <IDA Lugo Last Filed: 02/08/21 15:02> Resp: Effort & Inspection: normal respiratory effort and no respiratory distress <IDA Lugo - Last Filed: 02/08/21 15:02> Auscultation: clear to auscultation bilaterally <IDA Lugo - Last Filed: 02/08/21 15:02> Cardio: Rate: regular rate <IDA Lugo - Last Filed: 02/08/21 15:02> Rhythm: regular rhythm <IDA Lugo - Last Filed: 02/08/21 15:02> GI: Other: abdomen soft, non-tender, non-distended; +BS <IDA Lugo - Last Filed: 02/08/21 15:02> Skin: Other: pale <IDA Lugo - Last Filed: 02/08/21 15:02> Neuro: General: patient oriented x3 <IDA Lugo - Last Filed: 02/08/21 15:02> Cranial nerves: Yes CN's II-XII intact bilaterally and Yes Bilaterally intact EOM present <IDA Lugo - Last Filed: 02/08/21 15:02> Extrem: Other: Able to move all 4 extremities spontaneously; trace bilateral lower extremity edema; LUE tremor <IDA Lugo - Last Filed: 02/08/21 15:02> Results Labs CBC and Chem 7: : 02/09/21 05:23 02/09/21 05:23 <IDA Lugo - Last Filed: 02/08/21 15:02> Labs: Laboratory Results - last 24 hr 02/08/21 02/08/21 02/08/21 11:42 11:42 11:42 MCV 65.2 L MCH 18.2 L MCHC 27.9 L RDW 20.2 H Plt Count 305 MPV 8.6 L Immature Gran % (Auto) 0.7 H Neut % (Auto) 77.3 H Lymph % (Auto) 9.8 L [place] % (Auto) 9.4 Eos % (Auto) 2.3 Baso % (Auto) 0.5 Lymph # (Auto) 1.0 L [place] # (Auto) 1.0 Eos # (Auto) 0.2 Baso # (Auto) 0.1 Abs Immat Gran (auto) 0.07 H Absolute Neuts (auto) 8.2 Absolute Nucleated RBC 0.020 H Nucleated RBC % (auto) 0.2 Anion Gap 11 L Estim Creat Clear Calc 36.0 Estimated GFR > 60 Random Glucose 85 Calcium 9.6 Magnesium 2.0 Total Bilirubin 0.2 Direct Bilirubin 0.2 AST 14 ALT 11 Alkaline Phosphatase 43 D Troponin I High Sens B-Natriuretic Peptide 260 H Total Protein 6.2 L Albumin 3.7 Lipase 30 Stool Occult Blood Influenza Type A (PCR) Influenza Type B (PCR) RSV RNA Qual (PCR) SARS-CoV-2 RNA (RT-PCR) Blood Type Antibody Screen Crossmatch 02/08/21 02/08/21 02/08/21 11:42 11:42 12:25 MCV MCH MCHC RDW Plt Count MPV Immature Gran % (Auto) Neut % (Auto) Lymph % (Auto) [place] % (Auto) Eos % (Auto) Baso % (Auto) Lymph # (Auto) [place] # (Auto) Eos # (Auto) Baso # (Auto) Abs Immat Gran (auto) Absolute Neuts (auto) Absolute Nucleated RBC Nucleated RBC % (auto) Anion Gap Estim Creat Clear Calc Estimated GFR Random Glucose Calcium Magnesium Total Bilirubin Direct Bilirubin AST ALT Alkaline Phosphatase Troponin I High Sens 8.8 B-Natriuretic Peptide Total Protein Albumin Lipase Stool Occult Blood POSITIVE Influenza Type A (PCR) NEGATIVE Influenza Type B (PCR) NEGATIVE RSV RNA Qual (PCR) NEGATIVE SARS-CoV-2 RNA (RT-PCR) NEGATIVE Blood Type Antibody Screen Crossmatch 02/08/21 12:36 MCV MCH MCHC RDW Plt Count MPV Immature Gran % (Auto) Neut % (Auto) Lymph % (Auto) [place] % (Auto) Eos % (Auto) Baso % (Auto) Lymph # (Auto) [place] # (Auto) Eos # (Auto) Baso # (Auto) Abs Immat Gran (auto) Absolute Neuts (auto) Absolute Nucleated RBC Nucleated RBC % (auto) Anion Gap Estim Creat Clear Calc Estimated GFR Random Glucose Calcium Magnesium Total Bilirubin Direct Bilirubin AST ALT Alkaline Phosphatase Troponin I High Sens B-Natriuretic Peptide Total Protein Albumin Lipase Stool Occult Blood Influenza Type A (PCR) Influenza Type B (PCR) RSV RNA Qual (PCR) SARS-CoV-2 RNA (RT-PCR) Blood Type B Positive Antibody Screen NEGATIVE Crossmatch See Detail <IDA Lugo - Last Filed: 02/08/21 15:02> Imaging Radiologist's Impressions: Impressions Chest X-Ray 02/08/21 10:55 IMPRESSION: Hiatal hernia noted. No acute pulmonary finding. Abdomen/Pelvis CT 02/08/21 11:00 IMPRESSION: No acute findings in the abdomen or pelvis. No obstruction. No inflammatory changes. Moderate hiatal hernia noted. This is similar to previous. Fleischner guidelines were followed. Head CT 02/08/21 11:00 IMPRESSION: No acute intracranial pathology. Mild chronic volume loss with small vessel ischemic change. <IDA Lugo - Last Filed: 02/08/21 15:02> Assessment and Plan (1) Acute upper GI bleed: Status: Acute <IDA Lugo - Last Filed: 02/08/21 15:02> (2) Anemia: Qualifiers: Anemia type: unspecified type Qualified Code(s): D64.9 - Anemia, unspecified <IDA Lugo - Last Filed: 02/08/21 15:02> Status: Acute <IDA Lugo - Last Filed: 02/08/21 15:02> This is an 85 year old female with history of COPD, HFpEF, HTN who presents to the emergency department with complaints found to severe anemia Symptomatic anemia r/t acute blood loss H/H 4.8/17.2. hemodynamically stable at this time probable upper GI source continue IV protonix 2U RBC ordered, Follow repeat CBC this evening Hold ASA, avoid anticoagulation GI consult NPO HFpEF hold lasix monitor fluid status closely COPD no acute exacerbation continue inhalers HTN bp elevated but given gi bleed will hold norvasc will continue metoprolol Mood Continue fluoxetine dvt ppx - mechanical devices code status - full code HCP - son and daughter attending - Dr. Bazzi <IDA Lugo - Last Filed: 02/08/21 15:02> Quality Stroke Does the patient have a stroke diagnosis?: No <IDA Lugo - Last Filed: 02/08/21 15:02> VTE Prior VTE?: No <IDA Lugo - Last Filed: 12/09/21 15:02> VTE Risk Level:: Medical - moderate - high <IDA Lugo - Last Filed: 02/08/21 15:02> VTE Device Contraindication: N/A - Device Ordered <IDA Lugo - Last Filed: 02/08/21 15:02> VTE Drug Contraindication: Treatment Not Indicated <IDA Lugo - Last Filed: 02/08/21 15:02>
--- NOTE | 2021-02-08 14:37 | PC.NURSE ---
hospitalist in to see pt. BLOOD INFUSING WITHOUT PROBLEM. SON AT BEDSIDE.
[2021-02-08] MEDS: Furosemide 20 MG/2 ML VIAL IVPUSH (16:06)
--- NOTE | 2021-02-08 17:38 | MHC.SHP ---
Pre-Procedural Eval Section A Date of Service: 02/08/21 The patient is an INPATIENT: Yes Changes since office visit: No Cold of Flu in the past 2 weeks, No New Medical Problems, No Changes in Medication and No Patient answered all questions The History & Physical has been completed within 30 days and I have reviewed it.: Yes Section B Chief Complaint: GIB Allergies: Allergies Allergy/AdvReac Type Severity Reaction Status Date / Time blue dye [BLUE DYE] Allergy Unknown RASH Unverified 11/18/19 15:35 codeine [CODEINE] Allergy Unknown RASH Unverified 11/18/19 15:35 penicillin G [PENICILLIN G] Allergy Unknown RASH Unverified 11/18/19 15:35 morphine AdvReac Unknown Verified 02/09/20 10:35 Plan I have reviewed the history and physical and performed a pertinent physical examination on my patient. No changes have occurred unless specified.
--- NOTE | 2021-02-08 17:56 | PC.NURSE ---
1ST UNIT FINISHED AT 1715
--- NOTE | 2021-02-08 18:51 | PC.NURSE ---
pt sitting in room, eating clear liquids. offer no new complaints. pt vitals wnl. pt on second unit of blood at this time. call thomas within reach pending room on floor
--- NOTE | 2021-02-08 20:10 | MHC.CM.PN ---
Addendum entered by Gely Soares 02/08/21 20:31: Care Port given for acute rehab at pt request. Has been to [facility] in the past. Would be patients first choice. Original Note: CM met with admitted patient with bed assignment pending. A&Ox3. IMM reviewed and signed per protocol 02/08/21@9120. Copy given and to medical records. HCP on file. HCP/daughter, Tammy Brandt ([phone]), lives in [facility]. Pt lives with son, Tai. Uses a rollator walker. Has [employer] services through [facility]. Fully vaccinated with Pfizer and the booster. D/C plan is home with possible [id number] during hospital stay. Care Port given. No referrals placed yet. Son will provide transportation home if needed. CM to follow for D/C needs.
--- NOTE | 2021-02-08 20:12 | PC.NURSE ---
pt put on bed pain with no issues
[2021-02-08 20:36] LABS: Hematocrit 25.5 % (37.0-47.0); Hemoglobin 7.8 g/dl (12.0-16.0); Mean Corpuscular HGB Conc 30.6 g/dl (31.0-35.0); Mean Corpuscular Hemoglobin 21.8 pg (27.0-33.0); Mean Corpuscular Volume 71.4 fL (80.0-98.0); Mean Platelet Volume 8.3 fL (9.4-12.3); NRBC Pct Auto 0.6 /100WBC (0.0-0.2); Platelet Count 279 X10*3/uL (160-400); Red Blood Count 3.57 X10*6/uL (4.20-5.50); Red Cell Distribution Width 24.9 % (11.0-16.0); White Blood Count 12.9 X10*3/uL (4.8-10.8)
[2021-02-08] MEDS: Gabapentin 300 MG CAPSULE PO (20:46)
[2021-02-08] MEDS: rOPINIRole HCL 0.25 MG TABLET PO (20:46)
[2021-02-08] MEDS: Acetaminophen 325 MG TABLET 650 MG PO (20:57)
[2021-02-08] MEDS: Albuterol Sulfate 90 MCG 8 GM INHALER 2 PUFF INHALE (20:57)
--- NOTE | 2021-02-08 20:57 | PC.NURSE ---
PT STATING SHE HAS 10/10 ABDOMINAL PAIN. CONTACTED HOSPITALIST WHO STATED TO GIVE HER PRN TYLENOL. PT VITALS WNL. NO BLOOD RUNNING. GIVEN NIGHT TIME MEDICATIONS. ELMORE X 3 WIT EQUAL AND NON LABORED RR
[2021-02-09] VITALS (14 sets, daily range): BP systolic 102–185; BP diastolic 33–82; PULSE 69–92; RESP 16–20; TEMP 36.2–37.2; O2SAT 94–99
[2021-02-09] MEDS: 0.9 % Sodium Chloride Flush 3 ML SYRINGE IVFLUSH (00:56)
--- NOTE | 2021-02-09 03:34 | CONS_ITS ---
DATE OF SERVICE: 02/08/2021 REASON FOR CONSULTATION: GI bleeding. HISTORY OF PRESENT ILLNESS: The patient is an 85-year-old woman who was admitted to the hospital after presenting to the emergency room with 2 weeks of intermittent black stools and epigastric pain. She has had associated lightheadedness and dizziness as well as pain in her eyes, black stools have been reported intermittent by her and she felt weak, so she came to the emergency room. She has no prior history of peptic ulcer disease and does not take NSAIDs except for an 81 mg aspirin on a daily basis. She does have chronic constipation, which she treats with MiraLAX. She believes her last colonoscopy was 10 years ago. PAST MEDICAL HISTORY: 1. Hypertension. 2. COPD. 3. Congestive heart failure. 4. COVID-19 infection. 5. Ovarian tumor status post hysterectomy. 6. Appendectomy. 7. Cholecystectomy. 8. Kidney surgery. CURRENT MEDICATIONS: Her current medication list is reviewed in the chart. ALLERGIES: MULTIPLE MEDICATION ALLERGIES ARE REVIEWED. FAMILY HISTORY: This is reviewed with the patient and is positive for peptic ulcer disease in her father. SOCIAL HISTORY: She formally smoked, but does not currently. She drinks 1 alcoholic drink on a daily basis. REVIEW OF SYSTEMS: SKIN: No pruritus. HEENT: As above. CARDIOPULMONARY: No shortness of breath or chest pain. GASTROINTESTINAL: As above. GENITOURINARY: Negative. NEUROPSYCHIATRIC: Negative. PHYSICAL EXAMINATION: GENERAL: Shows a pleasant female. SKIN: Quite pale. HEENT: Shows no scleral icterus. NECK: Without lymphadenopathy or thyromegaly. LUNGS: Clear. HEART: Shows regular rate and rhythm. S1, S2. No murmur. ABDOMEN: Soft, without focal masses or tenderness. Bowel sounds are present. She does have some mild epigastric tenderness to palpation. No organomegaly is noted. EXTREMITIES: Show trace edema. LABORATORY DATA: Shows a white blood cell count of 10.6, hematocrit 17.2, down from 33 on February 09, 2020. MCV is low at 65.2. Chemistry showed BUN of 24. Imaging of the abdomen and pelvis obtained today shows no acute findings and a moderate hiatal hernia. IMPRESSION: Anemia with black stools. This is consistent with an upper gastrointestinal source for blood loss. She has been treated with proton pump inhibitor and her aspirin has been held. She is currently being transfused. I would recommend upper endoscopy to evaluate for an upper GI source for blood loss because of her microcytic indices. If nothing is found on the upper endoscopy, she will need colonoscopy. Risks and benefits of the procedures have been discussed with the patient who understands and agrees to proceed. MD DINH Morgan/DAVID / [id number]
[2021-02-09 05:42] LABS: MANUAL DIFF FLAG NO
[2021-02-09 05:48] LABS: Basophils Absolute Auto 0.1 X10*3/uL (0.0-0.2); Basophils Percent Auto 0.5 % (0-2); Eosinophils Absolute Auto 0.5 X10*3/uL (0.0-0.4); Eosinophils Percent Auto 4.2 % (0-4); Hematocrit 25.9 % (37.0-47.0); Hemoglobin 7.8 g/dl (12.0-16.0); Imm Gran Pct Auto 0.9 % (0.0-0.4); Lymphocytes Absolute Auto 1.3 X10*3/uL (1.2-4.9); Lymphocytes Percent Auto 11.8 % (20-40); Mean Corpuscular HGB Conc 30.1 g/dl (31.0-35.0); Mean Corpuscular Hemoglobin 21.3 pg (27.0-33.0); Mean Corpuscular Volume 70.6 fL (80.0-98.0); Mean Platelet Volume 8.4 fL (9.4-12.3); Monocytes Absolute Auto 1.3 X10*3/uL (0.1-1.2); Monocytes Percent Auto 11.7 % (2-11); NRBC Pct Auto 0.5 /100WBC (0.0-0.2); Neutrophils Absolute Auto 7.9 x10*3/uL (2.0-8.3); Neutrophils Percent Auto 70.9 % (45-73); Platelet Count 264 X10*3/uL (160-400); Red Blood Count 3.67 X10*6/uL (4.20-5.50); Red Cell Distribution Width 24.1 % (11.0-16.0); White Blood Count 11.1 X10*3/uL (4.8-10.8)
[2021-02-09 06:20] LABS: Anion Gap 11 (12-20); Blood Urea Nitrogen 20 mg/dL (9-16); Calcium 9.2 mg/dL (8.4-10.2); Carbon Dioxide 22 mmol/L (22-29); Chloride 107 mmol/L (96-108); Creatinine Clr Calc Pharmacy 34.8; Estimated Glomerular Filt Rate 55; Glucose Random 85 mg/dL (60-115); Sodium 136 mmol/L (135-145)
[2021-02-09] MEDS: Loratadine 10 MG TABLET PO (07:36)
[2021-02-09] MEDS: Metoprolol Succinate ER 25 MG TAB.ER.24H PO (07:36)
[2021-02-09] MEDS: Pantoprazole Sodium 80 MG in 0.9 % Sodium Chloride 80 ML 10 MG IV (07:36)
[2021-02-09] MEDS: FLUoxetine HCl 20 MG CAPSULE PO (07:36)
[2021-02-09] MEDS: Acetaminophen 325 MG TABLET 650 MG PO ×2 (07:36→14:05)
[2021-02-09] MEDS: Gabapentin 300 MG CAPSULE PO ×3 (07:36→21:15)
[2021-02-09] MEDS: amLODIPine Besylate 5 MG TABLET PO (08:30)
[2021-02-09] MEDS: Lactated Ringers 500 ML 20 ML IVCONT (10:07)
--- NOTE | 2021-02-09 10:10 | P.CONAN_ITS ---
[facility] Active Problems Active Problems: All Active Problems (Updated 02/08/21 @ 14:30 by IDA Negrete) Weakness (Acute) Anemia (Acute) Acute upper GI bleed (Acute) Past Medical History Medical History CHF (congestive heart failure) COPD (chronic obstructive pulmonary disease) COVID-19 HTN (hypertension) Ovarian tumor Functional capacity: independent ambulation Patient : No Family History Family History Father PUD (peptic ulcer disease) Family history of problems with anesthesia: No Surgical History Surgical History History of appendectomy History of cholecystectomy History of kidney surgery History of Problems with Anesthesia: No Social History Social History Household Members: Family and Other Housing: House Do you presently have visiting nurse or other home services: Yes Alcohol intake: current Alcohol intake frequency: a few times a week Alcohol type: wine Patient Tobacco Use Status: Former Tobacco user Use of substances other than those prescribed or required for medical reasons: No Currently Displaying Signs/Symptoms of Drug Intoxication Withdrawal: No Have you been hit, kicked, punched, or otherwise hurt by someone within the past year? If so, by whom?: No Do you feel safe in your current relationship?: No Is there a partner from a previous relationship who is making you feel unsafe now?: No Are you made to feel afraid or neglected: No Are you DNR?: No Advance Directives: Yes Advance Directives on File: Yes Advance Directives Date on File: 02/09/20 Do you have thoughts of harming others: None Do you have a plan to hurt others: No Plan Recently lost weight without trying: No Eating poorly because of decreased appetite: No Nutrition Risks: No Nutritional Risk service: No Current occupational status: retired Meds Allergies Allergy/AdvReac Type Severity Reaction Status Date / Time blue dye [BLUE DYE] Allergy Unknown RASH Verified 02/09/21 10:08 codeine [CODEINE] Allergy Unknown RASH Verified 02/09/21 10:08 penicillin G [PENICILLIN G] Allergy Unknown RASH Verified 02/09/21 10:08 morphine AdvReac Unknown Verified 02/09/20 10:35 Active Medications: Current Medications Acetaminophen (Acetaminophen 325 Mg Tablet) 650 mg PO Q6H PRN PRN Reason: Pain, Mild (Pain Scale 1-3) Last Admin: 02/09/21 07:36 Dose: 650 mg Documented by: Albuterol Sulfate (Albuterol Sulfate 90 Mcg 8 Gm Inhaler) 2 puff INHALE Q4H PRN PRN Reason: wheezing Last Admin: 02/08/21 20:57 Dose: 2 puff Documented by: Amlodipine Besylate (Amlodipine Besylate 5 Mg Tablet) 5 mg PO DAILY [facility]; Protocol Last Admin: 02/09/21 08:30 Dose: 5 mg Documented by: Fluoxetine HCl (Fluoxetine Hcl 20 Mg Capsule) 20 mg PO DAILY [facility] Last Admin: 02/09/21 07:36 Dose: 20 mg Documented by: Gabapentin (Gabapentin 300 Mg Capsule) 300 mg PO TID [facility] Last Admin: 02/09/21 07:36 Dose: 300 mg Documented by: Pantoprazole Sodium 80 mg/ (Sodium Chloride) 100 mls @ 10 mls/hr IV .Q10H [facility] Last Admin: 02/09/21 07:36 Dose: 8 mg/hr, 10 mls/hr Documented by: Loratadine (Loratadine 10 Mg Tablet) 10 mg PO DAILY [facility] Last Admin: 02/09/21 07:36 Dose: 10 mg Documented by: Metoprolol Succinate (Metoprolol Succinate Er 25 Mg Tab.Er.24h) 25 mg PO DAILY [facility]; Protocol Last Admin: 02/09/21 07:36 Dose: 25 mg Documented by: Ondansetron HCl (Ondansetron Hcl 4 Mg/2 Ml Vial) 4 mg IVPUSH Q8H PRN PRN Reason: Nausea and Vomiting Pharmacy Consult (Consult Rx Perform Med Rec) 1 each MISCELLANE ONCE PRN PRN Reason: Consult order Ropinirole HCl (Ropinirole Hcl 0.25 Mg Tablet) 0.25 mg PO BEDTIME [facility] Last Admin: 02/08/21 20:46 Dose: 0.25 mg Documented by: Sodium Chloride (0.9 % Sodium Chloride Flush 3 Ml Syringe) 3 ml IVFLUSH QSHIFT [facility] Last Admin: 02/09/21 07:25 Dose: Not Given Documented by: Home Medications Medication Instructions Recorded Confirmed Last Taken Type albuterol sulfate 90 mcg/actuation 2 puff INHALATION Q4H PRN 02/08/21 02/08/21 Unknown History aerosol inhaler amlodipine 5 mg tablet 1 tab PO DAILY 02/08/21 02/08/21 Unknown History aspirin 81 mg tablet,delayed 1 tab PO DAILY 02/08/21 02/08/21 Unknown History release fluoxetine 20 mg capsule 1 cap PO DAILY 02/08/21 02/08/21 Unknown History furosemide 20 mg tablet 1 tab PO DAILY 02/08/21 02/08/21 Unknown History gabapentin 300 mg capsule 1 cap PO TID 02/08/21 02/08/21 Unknown History loratadine 10 mg tablet 1 tab PO DAILY 02/08/21 02/08/21 Unknown History melatonin 3 mg tablet 2 tab PO BEDTIME 02/08/21 02/08/21 Unknown History metoprolol succinate 25 mg 1 tab PO DAILY 02/08/21 02/08/21 Unknown History tablet,extended release 24 hr montelukast 10 mg tablet 1 tab PO DAILY 02/08/21 02/08/21 Unknown History ropinirole 0.25 mg tablet 1 tab PO BEDTIME 02/08/21 02/08/21 Unknown History Exam Exam Date and Time: February 09, 2021 1010 Height,Weight and Vital Signs: Height 4 ft 9 in Weight 69.8 kg Last Vital Signs Temp 97.8 F 02/09/21 09:37 Pulse 80 02/09/21 09:37 Resp 20 02/09/21 09:37 BP 165/70 H 02/09/21 09:37 Pulse Ox 97 02/09/21 09:37 Pertinent Lab Results Pertinent Lab Results: Laboratory Tests 02/08/21 02/08/21 02/08/21 11:42 11:42 11:42 WBC 10.6 RBC 2.64 L Hgb 4.8 L* Hct 17.2 L* MCV 65.2 L MCH 18.2 L MCHC 27.9 L RDW 20.2 H Plt Count 305 MPV 8.6 L Immature Gran % (Auto) 0.7 H Neut % (Auto) 77.3 H Lymph % (Auto) 9.8 L [place] % (Auto) 9.4 Eos % (Auto) 2.3 Baso % (Auto) 0.5 Lymph # (Auto) 1.0 L [place] # (Auto) 1.0 Eos # (Auto) 0.2 Baso # (Auto) 0.1 Abs Immat Gran (auto) 0.07 H Absolute Neuts (auto) 8.2 Absolute Nucleated RBC 0.020 H Nucleated RBC % (auto) 0.2 Sodium 137 Potassium 4.2 Chloride 107 Carbon Dioxide 23 Anion Gap 11 L BUN 24 H Creatinine 0.89 Estim Creat Clear Calc 36.0 Estimated GFR > 60 Random Glucose 85 Calcium 9.6 Magnesium 2.0 Total Bilirubin 0.2 Direct Bilirubin 0.2 AST 14 ALT 11 Alkaline Phosphatase 43 D Troponin I High Sens B-Natriuretic Peptide 260 H Total Protein 6.2 L Albumin 3.7 Lipase 30 Stool Occult Blood Influenza Type A (PCR) Influenza Type B (PCR) RSV RNA Qual (PCR) SARS-CoV-2 RNA (RT-PCR) Blood Type Antibody Screen Crossmatch 02/08/21 02/08/21 02/08/21 11:42 11:42 12:25 WBC RBC Hgb Hct MCV MCH MCHC RDW Plt Count MPV Immature Gran % (Auto) Neut % (Auto) Lymph % (Auto) [place] % (Auto) Eos % (Auto) Baso % (Auto) Lymph # (Auto) [place] # (Auto) Eos # (Auto) Baso # (Auto) Abs Immat Gran (auto) Absolute Neuts (auto) Absolute Nucleated RBC Nucleated RBC % (auto) Sodium Potassium Chloride Carbon Dioxide Anion Gap BUN Creatinine Estim Creat Clear Calc Estimated GFR Random Glucose Calcium Magnesium Total Bilirubin Direct Bilirubin AST ALT Alkaline Phosphatase Troponin I High Sens 8.8 B-Natriuretic Peptide Total Protein Albumin Lipase Stool Occult Blood POSITIVE Influenza Type A (PCR) NEGATIVE Influenza Type B (PCR) NEGATIVE RSV RNA Qual (PCR) NEGATIVE SARS-CoV-2 RNA (RT-PCR) NEGATIVE Blood Type Antibody Screen Crossmatch 02/08/21 02/08/21 02/09/21 12:36 20:25 05:23 WBC 12.9 H 11.1 H RBC 3.57 L D 3.67 L Hgb 7.8 L D 7.8 L Hct 25.5 L D 25.9 L MCV 71.4 L D 70.6 L MCH 21.8 L 21.3 L MCHC 30.6 L 30.1 L RDW 24.9 H 24.1 H Plt Count 279 264 MPV 8.3 L 8.4 L Immature Gran % (Auto) 0.9 H Neut % (Auto) 70.9 Lymph % (Auto) 11.8 L [place] % (Auto) 11.7 H Eos % (Auto) 4.2 H Baso % (Auto) 0.5 Lymph # (Auto) 1.3 [place] # (Auto) 1.3 H Eos # (Auto) 0.5 H Baso # (Auto) 0.1 Abs Immat Gran (auto) 0.10 H Absolute Neuts (auto) 7.9 Absolute Nucleated RBC 0.080 H 0.060 H Nucleated RBC % (auto) 0.6 H 0.5 H Sodium Potassium Chloride Carbon Dioxide Anion Gap BUN Creatinine Estim Creat Clear Calc Estimated GFR Random Glucose Calcium Magnesium Total Bilirubin Direct Bilirubin AST ALT Alkaline Phosphatase Troponin I High Sens B-Natriuretic Peptide Total Protein Albumin Lipase Stool Occult Blood Influenza Type A (PCR) Influenza Type B (PCR) RSV RNA Qual (PCR) SARS-CoV-2 RNA (RT-PCR) Blood Type B Positive Antibody Screen NEGATIVE Crossmatch See Detail 02/09/21 05:23 WBC RBC Hgb Hct MCV MCH MCHC RDW Plt Count MPV Immature Gran % (Auto) Neut % (Auto) Lymph % (Auto) [place] % (Auto) Eos % (Auto) Baso % (Auto) Lymph # (Auto) [place] # (Auto) Eos # (Auto) Baso # (Auto) Abs Immat Gran (auto) Absolute Neuts (auto) Absolute Nucleated RBC Nucleated RBC % (auto) Sodium 136 Potassium 4.0 Chloride 107 Carbon Dioxide 22 Anion Gap 11 L BUN 20 H Creatinine 0.97 Estim Creat Clear Calc 34.8 Estimated GFR 55 Random Glucose 85 Calcium 9.2 Magnesium Total Bilirubin Direct Bilirubin AST ALT Alkaline Phosphatase Troponin I High Sens B-Natriuretic Peptide Total Protein Albumin Lipase Stool Occult Blood Influenza Type A (PCR) Influenza Type B (PCR) RSV RNA Qual (PCR) SARS-CoV-2 RNA (RT-PCR) Blood Type Antibody Screen Crossmatch Airway Mallampati Class: III TM Dist: >3cm Neck ROM: Full Heart: RRR Lungs: CTA Assessment and Plan Assessment Anesthesia Assessment: Anesthesia Plan Discussed Final Anesthetic Review Family History of Problems with Anesthesia: No History of Problems with Anesthesia: No ASA Class: III Final Preanesthetic Review: No Changes in Pt Med Stat, Meds/Allgs Chart Reviewed, Consent Obtained/Reviewed and Anes Risks/Benef Reviewed Patient Risk: Intermediate Procedure Risk: Low Anesthetic Plan Anesthetic Plan: MAC: Disposition: Standard PACU
--- NOTE | 2021-02-09 10:41 | P.BOP_ITS ---
Brief Operative Note Date of Service: 02/09/21 Pre-op diagnosis: UGI bleed Post-op diagnosis: same (erosive esophagitis, gastritis, gastric ulcer) Procedure: EGD Surgeon: Tevin Calderón Anesthesia: MAC Was an Financial Investment Manager used for this Procedure?: No Estimated blood loss (mL): 0 Pathology: none sent Condition: stable Disposition: PACU
--- NOTE | 2021-02-09 10:42 | PM.EVENT ---
Event Note Date of Service: 02/09/21 Event Note: EGD note dictated EGD shows erosive esophagitis, erosive gastritis and 10 x 15 mm nonbleeding gastric ulcer Advance diet, oral bid ppi no asa/nsaids follow hct repeat egd in 10-12 weeks
--- NOTE | 2021-02-09 11:04 | OP_ITS ---
SURGEON: Tevin Calderón MD INDICATIONS: Upper GI bleeding. PREOPERATIVE DIAGNOSIS: POSTOPERATIVE DIAGNOSIS: PROCEDURE PERFORMED: Upper endoscopy. ESTIMATED BLOOD LOSS: COMPLICATIONS: ANESTHESIA: ASSISTANTS: SPECIMENS: MEDICATIONS: Monitored anesthesia care. DESCRIPTION OF PROCEDURE: History and physical performed. The risks and benefits of the procedure were explained to the patient. Informed consent was obtained. The patient was placed in the left lateral decubitus position. The Olympus video gastroscope was introduced into the esophagus, stomach, and duodenum. Examination was performed and the scope was removed. She tolerated the procedure well and was taken to recovery area in stable condition. FINDINGS: Esophagus: The esophagus showed erosive esophagitis involving the last centimeter distally with 2 small areas of ulceration measuring approximately 6 mm each. There was no active bleeding. There was 8 to 10 cm hiatal hernia. Stomach: The stomach showed a 10 x 15 mm ulcer at the level of the diaphragm with some associated Toribio erosions. There was no active bleeding. There were antral erosions as well. Duodenum: The bulb and second portion were normal. IMPRESSION: 1. Erosive esophagitis. 2. Gastric ulcer. 3. Erosive gastritis. 4. Hiatal hernia. RECOMMENDATIONS: 1. Follow up the endoscopy will be arranged in 8 to 12 weeks to assess for healing of the ulcer. 2. Avoid NSAIDs. 3. Continue proton pump inhibitor b.i.d. orally and follow H and H. MD DINH Morgan/DAVID / [id number]
--- NOTE | 2021-02-09 13:28 | MHC.CLN ---
NUTRITION CONSULT DUE TO COLEEN=15. CURRENT COLEEN=18. NO PRESSURE AREAS. PATIENT IS CURRENTLY NPO.
--- NOTE | 2021-02-09 13:46 | P.PNIM_ITS ---
Subjective Subjective Date of Service: 02/09/21 Interval History: Being followed for symptomatic anemia, patient return for upper endoscopy, complaining of sore throat, weakness, excessive gas, did not sleep well last night, requesting for sleeping pill. Review of Systems [employer] headache no dizziness CVS no chest pain, no palpitation GI epigastric pain and gas no urinary symptoms Review of Systems: Yes all other systems are reviewed and are negative Physical Exam Vital Signs: Vital Signs: Last Vital Signs Temp 97.5 F 02/09/21 12:13 Pulse 74 02/09/21 12:13 Resp 20 02/09/21 12:13 BP 143/66 H 02/09/21 12:13 Pulse Ox 95 02/09/21 12:13 BMI result Body Mass Index 33.3 General awake alert x3, no acute distress. Neck supple, no JVD. CVS regular rate rhythm, Respiratory lungs clear to auscultation, no respiratory distress, no wheeze, no rhonchi. Gastrointestinal abdomen soft, mild epigastric discomfort, bowel sounds audible, no guarding , no rigidity. Extremities trace edema. Neuro nonfocal Skin no rash Psych appropriate affect Objective Data Active Medications Acetaminophen (Acetaminophen 325 Mg Tablet) 650 mg PO Q6H PRN PRN Reason: Pain, Mild (Pain Scale 1-3) Last Admin: 02/09/21 07:36 Dose: 650 mg Documented by: COTEMA Albuterol Sulfate (Albuterol Sulfate 90 Mcg 8 Gm Inhaler) 2 puff INHALE Q4H PRN PRN Reason: wheezing Last Admin: 02/08/21 20:57 Dose: 2 puff Documented by: KAILASH Amlodipine Besylate (Amlodipine Besylate 5 Mg Tablet) 5 mg PO DAILY [facility]; Protocol Last Admin: 02/09/21 08:30 Dose: 5 mg Documented by: COTEMA Fluoxetine HCl (Fluoxetine Hcl 20 Mg Capsule) 20 mg PO DAILY [facility] Last Admin: 02/09/21 07:36 Dose: 20 mg Documented by: COTEMA Gabapentin (Gabapentin 300 Mg Capsule) 300 mg PO TID [facility] Last Admin: 02/09/21 07:36 Dose: 300 mg Documented by: COTEMA Lactated Ringer's (Lr) 500 mls @ 20 mls/hr IVCONT .Q24H [facility] Last Infusion: 02/09/21 12:02 Dose: 20 mls/hr Documented by: YONATAN Loratadine (Loratadine 10 Mg Tablet) 10 mg PO DAILY [facility] Last Admin: 02/09/21 07:36 Dose: 10 mg Documented by: SILVANO Metoprolol Succinate (Metoprolol Succinate Er 25 Mg Tab.Er.24h) 25 mg PO DAILY [facility]; Protocol Last Admin: 02/09/21 07:36 Dose: 25 mg Documented by: SILVANO Omeprazole (Omeprazole 20 Mg Capsule.Dr) 20 mg PO BID@0630,1630 [facility] Ondansetron HCl (Ondansetron Hcl 4 Mg/2 Ml Vial) 4 mg IVPUSH Q8H PRN PRN Reason: Nausea and Vomiting Pharmacy Consult (Consult Rx Perform Med Rec) 1 each MISCELLANE ONCE PRN PRN Reason: Consult order Ropinirole HCl (Ropinirole Hcl 0.25 Mg Tablet) 0.25 mg PO BEDTIME [facility] Last Admin: 02/08/21 20:46 Dose: 0.25 mg Documented by: KAILASH Sodium Chloride (0.9 % Sodium Chloride Flush 3 Ml Syringe) 3 ml IVFLUSH QSHIFT [facility] Last Admin: 02/09/21 07:25 Dose: Not Given Documented by: SILVANO Non-Admin Reason: IV Running Labs CBC & Chem 7: 02/09/21 05:23 02/09/21 05:23 Labs: Laboratory Results - last 24 hr 02/08/21 02/08/21 02/09/21 12:36 20:25 05:23 MCV 71.4 L D 70.6 L MCH 21.8 L 21.3 L MCHC 30.6 L 30.1 L RDW 24.9 H 24.1 H Plt Count 279 264 MPV 8.3 L 8.4 L Immature Gran % (Auto) 0.9 H Neut % (Auto) 70.9 Lymph % (Auto) 11.8 L Major % (Auto) 11.7 H Eos % (Auto) 4.2 H Baso % (Auto) 0.5 Lymph # (Auto) 1.3 Major # (Auto) 1.3 H Eos # (Auto) 0.5 H Baso # (Auto) 0.1 Abs Immat Gran (auto) 0.10 H Absolute Neuts (auto) 7.9 Absolute Nucleated RBC 0.080 H 0.060 H Nucleated RBC % (auto) 0.6 H 0.5 H Anion Gap Estim Creat Clear Calc Estimated GFR Random Glucose Calcium Blood Type B Positive Antibody Screen NEGATIVE Crossmatch See Detail 02/09/21 05:23 MCV MCH MCHC RDW Plt Count MPV Immature Gran % (Auto) Neut % (Auto) Lymph % (Auto) Major % (Auto) Eos % (Auto) Baso % (Auto) Lymph # (Auto) Major # (Auto) Eos # (Auto) Baso # (Auto) Abs Immat Gran (auto) Absolute Neuts (auto) Absolute Nucleated RBC Nucleated RBC % (auto) Anion Gap 11 L Estim Creat Clear Calc 34.8 Estimated GFR 55 Random Glucose 85 Calcium 9.2 Blood Type Antibody Screen Crossmatch Assessment and Plan (1) Anemia: Status: Acute (2) Acute upper GI bleed: Status: Acute (3) Weakness: Status: Acute Assessment and Plan: 85 year old female with history of COPD, HFpEF, HTN who presents to the emergency department with complaints found to severe anemia Symptomatic anemia r/t acute blood loss H/H 4.8/17.2 on admission status post 2 units of packed RBC hematocrit improved to 25.9 Patient underwent upper endoscopy by Dr. Calderón it showed erosive esophagitis, erosive gastritis and 10 x 15 mm nonbleeding gastric ulcer Will advance diet, DC IV Protonix and switch to by mouth PPI, DC IV fluid Recommend no aspirin and NSAIDs Outpatient follow-up with GI to repeat endoscopy in 10-12 week Will add simethicone for gas, Cepacol lozenges for sore throat Insomnia Will give melatonin HFpEF no acute exc,monitor fluid status closely, resume Lasix upon discharge COPD no acute exacerbation continue inhalers HTN bp elevated will resume home dose of Norvasc and continue metoprolol Mood Continue fluoxetine dvt ppx - mechanical devices code status - full code Spoke with son healthcare proxy at bedside plan is for discharge home tomorrow. Quality Stroke Does the patient have a stroke diagnosis?: No VTE Prior VTE?: No VTE Risk Level:: Medical - moderate - high VTE Device Contraindication: N/A - Device Ordered VTE Drug Contraindication: Treatment Not Indicated
[2021-02-09] MEDS: Simethicone 80 MG TAB.CHEW PO (14:05)
[2021-02-09] MEDS: Throat Lozenge, Medicated LOZENGE 1 LOZENGE MUCOUS MEM ×2 (14:05→16:38)
[2021-02-09] MEDS: Omeprazole 20 MG CAPSULE.DR PO (16:38)
[2021-02-09] MEDS: Melatonin 3 MG TABLET PO (21:15)
[2021-02-09] MEDS: rOPINIRole HCL 0.25 MG TABLET PO (21:15)
[2021-02-10] MEDS: 0.9 % Sodium Chloride Flush 3 ML SYRINGE IVFLUSH ×2 (00:36→08:56)
[2021-02-10 04:00] VITALS: BP 125/72; PULSE 79; RESP 16; TEMP 36.1; O2SAT 98
[2021-02-10] MEDS: Omeprazole 20 MG CAPSULE.DR PO (05:31)
[2021-02-10 05:50] LABS: Hematocrit 25.4 % (37.0-47.0); Hemoglobin 7.6 g/dl (12.0-16.0); Mean Corpuscular HGB Conc 29.9 g/dl (31.0-35.0); Mean Corpuscular Hemoglobin 21.6 pg (27.0-33.0); Mean Corpuscular Volume 72.2 fL (80.0-98.0); Mean Platelet Volume 8.7 fL (9.4-12.3); NRBC Pct Auto 0.2 /100WBC (0.0-0.2); Platelet Count 260 X10*3/uL (160-400); Red Blood Count 3.52 X10*6/uL (4.20-5.50); Red Cell Distribution Width 24.4 % (11.0-16.0); White Blood Count 12.2 X10*3/uL (4.8-10.8)
[2021-02-10 07:52] VITALS: BP 148/68; PULSE 77; RESP 16; TEMP 36.5; O2SAT 96
[2021-02-10] MEDS: Gabapentin 300 MG CAPSULE PO (08:54)
[2021-02-10] MEDS: Ferrous Sulfate 324 MG TABLET.DR PO (08:54)
[2021-02-10] MEDS: Loratadine 10 MG TABLET PO (08:54)
[2021-02-10] MEDS: FLUoxetine HCl 20 MG CAPSULE PO (08:54)
[2021-02-10] MEDS: Metoprolol Succinate ER 25 MG TAB.ER.24H PO (08:54)
[2021-02-10] MEDS: amLODIPine Besylate 5 MG TABLET PO (08:54)
[2021-02-10 09:56] VITALS: PULSE 79; RESP 20; O2SAT 98
[2021-02-10] MEDS: Albuterol/Iprat 2.5/0.5MG 3 ML AMPUL.NEB INHALE (10:13)
[2021-02-10 11:44] VITALS: BP 129/62; PULSE 76; RESP 17; TEMP 36.9; O2SAT 96
--- NOTE | 2021-02-10 12:16 | PM.DS ---
DS: Providers Provider Date of Service: 02/10/21 Date of admission: 02/08/21 14:07 Primary care physician: Eldon Matute MD Consults: 02/08/21 13:09 Consult to Gastroenterology Stat Consulting Provider: Tevin Calderón Reason for consultation: anemia, black stools, upper abdominal pain hemoglobin 4.8 Has provider been notified: Yes 02/08/21 14:07 Consult to Gastroenterology Routine Consulting Provider: Tevin Calderón Reason for consultation: GIB Has provider been notified: No DS: Diagnosis Discharge Diagnosis (1) Anemia: Status: Acute (2) Acute upper GI bleed: Status: Acute (3) Weakness: Status: Acute DS: Summary Hospital Course Hospital Course: Chief Complaint:? weakness, sore throat, abdominal pain? 85 year old female who presents to the ED with multiple complaints. For the past two weeks she has not been feeling well.? She reports ear pain, sore throat, headache, shortness of breath, generalized abdominal pain as well as generalized weakness.? She reports 2 weeks of dark stools.? She has had nausea but no vomiting, no diarrhea. She denies the use of NSAIDs.? She takes a baby aspirin daily, no blood thinners. In the ED,? lab work was significant for H/H of 4.8/17.2.? The remainder of her lab work was unremarkable.? Blood pressure has been elevated, mild tachycardia.? Two units of blood have been ordered but not yet transfused. The decision was made to admit her to the hospital for management of anemia. Hospital course 85 year old female with history of COPD, HFpEF, HTN who presents to the emergency department with generalized weakness, sore throat, gas pain and found to severe symptomatic anemia related to acute blood loss Noted to have H/H 4.8/17.2 on admission, received 2 units of packed RBC , hematocrit improved to 25.9,patient underwent upper endoscopy by Dr. Calderón it showed erosive esophagitis, erosive gastritis and 10 x 15 mm nonbleeding gastric ulcer, patient treated with IV Protonix, subsequently transitioned to by mouth Prilosec 20 mg b.i.d. and also started on Carafate, patient complained of significant gas pain burping, strongly advised to take small frequent meals is stay upright while eating meals and half an hour after eating, recommended ambulation, also recommended to have outpatient follow-up with Gastroenterology for repeat endoscopy in 10-12 week. Chronic Insomnia continue to take melatonin. HFpEF no acute exc,monitor fluid status closely, continue home dose of Lasix. COPD. no acute exacerbation noted, continue inhalers, chest x-ray showed no infiltrate. HTN continue home medication Norvasc and metoprolol Mood Continue fluoxetine Time Spent with Patient Time attestation: Total time spent providing and/or coordinating discharge services: Discharge coordination time: Greater than 30 minutes Quality: Stroke Does the patient have a stroke diagnosis?: No Physical Exam Vital Signs: Vital Signs: Last Vital Signs Temp 98.4 F 02/10/21 11:44 Pulse 76 02/10/21 11:44 Resp 17 02/10/21 11:44 BP 129/62 02/10/21 11:44 Pulse Ox 96 02/10/21 11:44 BMI result Body Mass Index 33.3 General awake alert x3, no acute distress.? Throat normal examination moist mucous membrane. Neck? supple, no JVD. CVS? regular rate rhythm, Respiratory lungs clear to auscultation, no respiratory distress, no wheeze, no rhonchi. Gastrointestinal abdomen soft, soft nontender, bowel sounds audible, no guarding , no rigidity. Extremities no edema. Neuro nonfocal Skin no rash Psych appropriate affect DS: Data Data Completed and Pending Labs on day of discharge: Laboratory Results - last 24 hr 02/10/21 05:28 WBC 12.2 H RBC 3.52 L Hgb 7.6 L Hct 25.4 L MCV 72.2 L MCH 21.6 L MCHC 29.9 L RDW 24.4 H Plt Count 260 MPV 8.7 L Absolute Nucleated RBC 0.030 H Nucleated RBC % (auto) 0.2 Discharge Plan Discharge Patient Disposition: Home, Self-Care Discharge Diagnosis: Symptomatic anemia/acute blood loss Hiatal hernia Referrals: Eldon Matute MD [Primary Care Provider] - 1 Week Discharge Medications: New omeprazole 20 mg Capsule,Delayed Release(Dr/Ec) 20 mg PO BID@0630,1630 Qty: 60 RF: 0 sucralfate 100 mg/mL Suspension 1 g PO QIDACHS Qty: 1000 RF: 0 Continued melatonin 3 mg tablet 2 tab PO BEDTIME RF: 0 amlodipine 5 mg tablet 1 tab PO DAILY RF: 0 ropinirole 0.25 mg tablet 1 tab PO BEDTIME RF: 0 gabapentin 300 mg capsule 1 cap PO TID RF: 0 montelukast 10 mg tablet 1 tab PO DAILY RF: 0 furosemide 20 mg tablet 1 tab PO DAILY RF: 0 metoprolol succinate 25 mg tablet extended release 24 hr 1 tab PO DAILY RF: 0 albuterol sulfate 90 mcg/actuation HFA aerosol inhaler 2 puff inhalation Q4H PRN (Reason: wheezing) RF: 0 fluoxetine 20 mg capsule 1 cap PO DAILY RF: 0 loratadine 10 mg tablet 1 tab PO DAILY RF: 0 Discontinued aspirin 81 mg tablet,delayed release (DR/EC) 1 tab PO DAILY RF: 0 Discharge Orders: Discharge Order (Routine); Ordered 02/10/21 Ordered By: Naga Carlton Diet: advance to usual diet Activity on Discharge: As tolerated Stand Alone Forms: Patient Portal Discharge page Care Plan Goals: Hiatal hernia, erosive esophagitis, erosive gastritis and tendon to 15 mm nonbleeding gastric ulcer, recommend small frequent meals, take all meals while sitting and remains upright 30 minutes after eating, take Prilosec 20 mg b.i.d. and sucralfate as directed follow-up with gastroenterology in 10-12 weeks Health Concerns: Continue all other home medication Plan of Treatment: Outpatient follow-up with primary care physician in next 7-10 days, outpatient follow-up with Dr. Calderón call for appointment in 10-12 weeks for repeat upper endoscopy. Assessment: As above
--- NOTE | 2021-02-10 12:27 | MHC.CM.PN ---
PATIENT IS DISCHARGED HOME TODAY - SELF CARE. IMM 02/08 IN CHART. DAUGHTER TO TRANSPORT
--- NOTE | 2021-02-10 14:43 | HO.POSTANES ---
Post Anesthesia Evaluation Post Anesthesia Evaluation Vital Signs: Vital Signs Temp Pulse Resp BP Pulse Ox 02/10/21 11:44 98.4 F 76 17 129/62 96 02/10/21 09:56 79 20 02/10/21 07:52 97.7 F 77 16 148/68 H 96 02/10/21 04:00 97.0 F 79 16 125/72 98 Anesthesia: Monitored Mental Status: Awake Pain Control: Satisfactory Nausea/Vomiting: None Hydration: Adequate Anesthesia-Related Issues: No Anes. Related Issues
== END 2021-02-10 13:00 | disposition home or self-care (01) | DRG 381 ==
LOC: HO.ED 14:06 → HO.EDOVER 14:20 → HO.S3 23:22
PROVIDERS: Internal Medicine Gastroenterology; Admitting Provider Physician Assistant Medical; Emergency Provider Emergency Medicine; PCP Family Medicine; Visit Provider Hospitalist
PROC: 0DJ08ZZ Inspection of Upper Intestinal Tract, Via Natural or Artificial Opening Endoscopic (ICD-10-PCS; CPT 43235; principal; 2021-02-09 11:10)
DX: K22.11 Ulcer of esophagus with bleeding (principal); I50.32 Chronic diastolic (congestive) heart failure; K25.4 Chronic or unspecified gastric ulcer with hemorrhage; I11.0 Hypertensive heart disease with heart failure; J44.9 Chronic obstructive pulmonary disease, unspecified; Z20.822 Contact with and (suspected) exposure to COVID-19; K46.9 Unspecified abdominal hernia without obstruction or gangrene; G47.00 Insomnia, unspecified; Z86.16 Personal history of COVID-19; Z88.0 Allergy status to penicillin; Z88.5 Allergy status to narcotic agent; Z87.891 Personal history of nicotine dependence; Z79.899 Other long term (current) drug therapy
CPT/HCPCS: 0241U; 36415; 36430; 70450; 71045; 74176; 80048; 80076; 82272; 83690; 83735; 83880; 84484; 85025; 85027; 86850; 86900; 86901; 86923; 93005; 94640; 96365; 96375; 99285; J1940; J2405; P9016

== ENCOUNTER 2021-02-13 14:54 | Emergency (ER) | payer MEDICARE, SELFPAY ==
[2021-02-13] VITALS (8 sets, daily range): BP systolic 131–163; BP diastolic 47–74; PULSE 79–105; RESP 16–24; TEMP 36.7–37.2; O2SAT 95–99; BMI 34.0
--- NOTE | ~2021-02-13 | XR_ITS ---
EXAMINATION: XR CHEST CLINICAL INFORMATION: Shortness of breath, wheezing COMPARISON: Chest radiographs 02/08/2021, 08/29/2019, CT abdomen 02/08/2021 TECHNIQUE: Portable upright AP view of the chest was obtained. FINDINGS: There are low lung volumes. Patient rotated to left. The cardiopericardial silhouette is upper limits of normal size. There is even distribution pulmonary vascularity with coarsening of the bronchovascular markings which may suggest mild elevated pulmonary venous pressures. There are no overt currently lines and no lobar or segmental airspace consolidation or focal groundglass opacity. No definite effusion. There is a known moderate hiatal hernia seen. Multilevel degenerative changes thoracic spine. XR/XR chest 1V IMPRESSION: 1. Even distribution pulmonary vascularity with coarsening bronchovascular markings. This may suggest mild elevated pulmonary venous pressures. 2. No lobar segmental airspace consolidation or definite groundglass opacity. 3. Chronic moderate hiatal hernia.
--- NOTE | ~2021-02-13 | CT_ITS ---
EXAMINATION: CT SOFT TISSUE NECK WITHOUT CONTRAST CLINICAL INFORMATION: 85-year-old female with sore throat. Upper airway wheezing, stridor. COMPARISON: CT head and cervical spine from 02/09/2020. TECHNIQUE: Noncontrast multidetector CT imaging was performed in the axial plane with generation of coronal and sagittal reformatted images. This CT examination was performed using dose optimization techniques as appropriate, variously including the following: *Automated exposure control *Adjustment of mA and/or kV according to patient size (this includes techniques or standardized protocols for targeted exams where dose is matched to indication/reason for exam; i.e. extremities or head) *Use of iterative reconstruction technique DLP: 514 mGy-cm FINDINGS: Parotid glands, submandibular glands, and thyroid gland are normal. The nasopharynx, oral cavity, tongue base, and tonsillar pillars are unremarkable. No noncontrast imaging evidence of a peritonsillar abscess. No contour abnormality within the oral cavity or pharyngeal mucosal space. The parapharyngeal fat planes are preserved. The hypopharynx, epiglottis, aryepiglottic folds and preepiglottic space are normal. Laryngeal structures normal. No fluid collections in the deep soft tissues. Normal sized lymph nodes of the suprahyoid and infrahyoid neck without evidence of lymphadenopathy by size criteria. Also, no lymphadenopathy is detected within the visualized axillary regions or mediastinum. Atherosclerotic calcification of the thoracic aorta without aneurysm. Mild calcific atherosclerosis of the carotid bulbs. The visualized intracranial structures are unremarkable. No acute findings compared to the head CT from 02/08/2021. No extra-axial fluid collection. Mild mucosal thickening of the left maxillary sinus. Otherwise, the paranasal sinuses are well aerated and the ostiomeatal units are patent. There been ocular lens replacements. No acute intraorbital pathology. 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 Chronic mild degenerative anterolisthesis at C3-C4, C4-C5, C5-C6 and C6-C7. No prevertebral soft tissue swelling. Within the visualized chest, the trachea and mainstem bronchi are widely patent. No evidence of pneumonia or mass in the visualized upper lobes or superior segments of lower lobes. A large hiatal hernia is partially included in the [id number]. Trace left pleural effusion is present. There is chondrocalcinosis and mild osteoarthrosis of the glenohumeral joints. CT/CT soft tissue neck wo con IMPRESSION: * No evidence of soft tissue mass or lymphadenopathy within the neck. * Also, there is no noncontrast imaging evidence of an acute infectious or inflammatory process within the neck. No soft tissue abscess. The larynx and trachea are unremarkable. * Large hiatal hernia is partially included in [id number]. * There are mild multilevel degenerative subluxations of the cervical spine.
--- NOTE | 2021-02-13 15:33 | ED_ITS ---
HPI - URI/Sore Throat General Chief Complaint: Upper Respiratory Symptoms <IDA Soto - Last Filed: 02/13/21 17:53> Stated Complaint: INC SOB,PROD COUGH,SEEN FOR SAME RECENTLY <IDA Soto - Last Filed: 02/13/21 17:53> Time Seen by Provider: 02/13/21 15:22 <IDA Soto - Last Filed: 02/13/21 17:53> Source: patient, family and old records reviewed <IDA Soto - Last Filed: 02/13/21 17:53> Mode of arrival: EMS <IDA Soto - Last Filed: 02/13/21 17:53> Limitations: no limitations <IDA Soto Last Filed: 02/13/21 17:53> History of Present Illness HPI Narrative: 85 y/o female with history of asthma, HFpEF, HTN, & recent admission for acute blood loss anemia 2/2 upper GI bleed (hgb 4.8) with erosive esophagitis, erosive gastritis and nonbleeding gastric ulcer seen on EGD 02/09 who was just discharged from here 2 days ago who now presents back with ongoing shortness of breath, cough, wheezing, ear pain, sore throat, & chills. She reports this has been going on for about 2 weeks, were present when she was admitted and she was discharged with all the same symptoms. She called her primary care doctor today to let him know she still was not feeling well, she was so dyspneic and wheezy during the conversation that he told her to come back to emergency room for further evaluation, she called 911. <IDA Soto - Last Filed: 02/13/21 17:53> MD elicited complaint: cough, sore throat, nasal congestion and other (SOB) <IDA Soto - Last Filed: 02/13/21 17:53> Pertinent past history: asthma <IDA Soto - Last Filed: 02/13/21 17:53> Onset (ago): week(s) (2) <IDA Soto Last Filed: 02/13/21 17:53> Consistency: constant <IDA Soto - Last Filed: 02/13/21 17:53> Severity: moderate <IDA Soto - Last Filed: 02/13/21 17:53> Description of mucous: clear <IDA Soto - Last Filed: 02/13/21 17:53> Able to tolerate fluids by mouth: Yes <IDA Soto - Last Filed: 02/13/21 17:53> Exacerbating factors: exertion <IDA Soto - Last Filed: 02/13/21 17:53> Relieving factors: nothing <IDA Soto - Last Filed: 02/13/21 17:53> Associated symptoms: chills, myalgias, headache, rhinorrhea, nasal congestion, sore throat, cough, chest pain and shortness of breath <IDA Soto - Last Filed: 17:53> Treatments prior to arrival: none <IDA Soto - Last Filed: 02/13/21 17:53> Related Data Home Medications: Home Medications Medication Instructions Recorded Confirmed albuterol sulfate 90 mcg/actuation 2 puff INHALATION Q4H PRN 02/08/21 02/13/21 aerosol inhaler amlodipine 5 mg tablet 1 tab PO DAILY 02/08/21 02/13/21 fluoxetine 20 mg capsule 1 cap PO DAILY 02/08/21 02/13/21 furosemide 20 mg tablet 1 tab PO DAILY 02/08/21 02/13/21 gabapentin 300 mg capsule 1 cap PO TID 02/08/21 02/13/21 loratadine 10 mg tablet 1 tab PO DAILY 02/08/21 02/13/21 melatonin 3 mg tablet 2 tab PO BEDTIME 02/08/21 02/13/21 metoprolol succinate 25 mg 1 tab PO DAILY 02/08/21 02/13/21 tablet,extended release 24 hr montelukast 10 mg tablet 1 tab PO BEDTIME 02/08/21 02/13/21 ropinirole 0.25 mg tablet 1 tab PO BEDTIME 02/08/21 02/13/21 aspirin 81 mg tablet,delayed 81 mg PO DAILY 02/13/21 02/13/21 release simethicone 80 mg chewable tablet 80 mg PO QIDWMHS PRN 02/13/21 02/13/21 sucralfate 1 gram tablet 1 g PO QIDACHS 02/13/21 02/13/21 Previous Rx's Medication Instructions Recorded omeprazole 20 mg capsule,delayed 20 mg PO BID@0630,4620 #60 cap 02/10/21 release <IDA Soto - Last Filed: 02/13/21 17:53> Allergies/Adverse Reactions: Allergies Allergy/AdvReac Type Severity Reaction Status Date / Time blue dye [BLUE DYE] Allergy Unknown RASH Verified 02/09/21 10:08 codeine [CODEINE] Allergy Unknown RASH Verified 02/09/21 10:08 penicillin G [PENICILLIN G] Allergy Unknown RASH Verified 02/09/21 10:08 morphine AdvReac Unknown Verified 02/09/20 10:35 <IDA Soto - Last Filed: 02/13/21 17:53> Review of Systems Review of Systems: Constitutional: No Fever, + Chills ENT/Mouth: + sore throat, + Rhinorrhea, No Swallowing Difficulty Eyes: No Eye Pain, No Swelling, No Redness Cardiovascular: + Chest Pain, + SOB, No Orthopnea,+ Edema Respiratory: + Cough, No Sputum, No Wheezing, No dyspnea Gastrointestinal: No Nausea, No Vomiting, No Diarrhea, No abdominal Pain, No Hematochezia, No Melena Genitourinary: No Dysuria, No Urinary Frequency, No Hematuria Musculoskeletal: No joint pain, No Myalgias Skin: No Skin Lesions, No rash Neuro: No Weakness, No Numbness, No Dizziness, + Headache Psych: + Anxiety/Panic, No Depression Heme/Lymph: No Bruising, No Lymphadenopathy Endocrine: No Polyuria, No Polydipsia <IDA Soto - Last Filed: 02/13/21 17:53> [facility] Past Medical History Medical History: Medical History CHF (congestive heart failure) COPD (chronic obstructive pulmonary disease) COVID-19 HTN (hypertension) Ovarian tumor <IDA Soto - Last Filed: 02/13/21 17:53> Surgical History: Surgical History History of appendectomy History of cholecystectomy History of kidney surgery <IDA Soto - Last Filed: 02/13/21 17:53> Family History Family History: Family History Father PUD (peptic ulcer disease) <IDA Soto - Last Filed: 02/13/21 17:53> Social History Social History: Social History Household Members: Family and Other Housing: House Do you presently have visiting nurse or other home services: Yes Alcohol intake: current Alcohol intake frequency: a few times a week Alcohol type: wine Patient Tobacco Use Status: Former Tobacco user Advance Directives: Yes Advance Directives on File: Yes Advance Directives Date on File: 02/09/20 service: No Current occupational status: retired <IDA Soto - Last Filed: 02/13/21 17:53> Physical Exam Vital Signs: Vital Signs: Last Vital Signs Temp 98.3 F 02/14/21 10:35 Pulse 82 02/14/21 10:35 Resp 15 02/14/21 10:35 BP 150/63 H 02/14/21 10:35 Pulse Ox 95 02/14/21 10:35 BMI result Body Mass Index 34.0 <IDA Soto - Last Filed: 02/13/21 17:53> Vital Signs: Last Vital Signs Temp 98.3 F 02/14/21 10:35 Pulse 82 02/14/21 10:35 Resp 15 02/14/21 10:35 BP 150/63 H 02/14/21 10:35 Pulse Ox 95 02/14/21 10:35 BMI result Body Mass Index 34.0 <Jose Francisco Garcia MD - Last Filed: 02/13/21 18:20> Vital Signs: Last Vital Signs Temp 98.3 F 02/14/21 10:35 Pulse 82 02/14/21 10:35 Resp 15 02/14/21 10:35 BP 150/63 H 02/14/21 10:35 Pulse Ox 95 02/14/21 10:35 BMI result Body Mass Index 34.0 <IDA Luther - Last Filed: 02/14/21 10:38> Appearance: Alert. Oriented X3. No acute distress. Eyes: Pupils equal, round and reactive to light. ENT: Pharynx normal. Neck: Normal inspection. Neck supple. CVS: Normal heart rate and rhythm. Pulses normal. Respiratory: Mild respiratory distress. Breath sounds with diffuse end expiratory wheezes, forced expiratory wheezes with adventitious upper airway sounds. dyspneic when speaking Abdomen: Soft and nontender. +BS x4 Skin: Skin warm and dry. Normal skin color. Normal skin turgor. No rashes. Extremities: No lower extremity edema. Neuro: Oriented X 3. No motor deficit. No sensory deficit. <IDA Soto - Last Filed: 02/13/21 17:53> Course Course Course Narrative: 85 y/o female with history of COPD/asthma, recent UGIB and acute anemia requiring EGD and blood transfusion who presents with ongoing SOB, wheezing, sore throat, ear pain ongoing for 2 weeks. Dyspneic when speaking but not hypoxic. Seems to be up upper airway issue and is forced. Doubt stridor, improves with speaking. Will give dose of IV steroids now, and a hour long albuterol treatment. Will check COVID-19 swab, chest x-ray and repeat labs. Will monitor closely. <IDA Soto - Last Filed: 02/13/21 17:53> Reevaluation(s) Reevaluation #1: H&H is at her baseline. BNP is 236 today, which is improved from prior. Chest x-ray showing no acute airspace opacities or ground-glass opacities. Her wheezing is improved after steroids and albuterol however she still has some intermittent dyspnea and forced expiratory wheezing that seems to be coming from her upper airway. It is improvement speaking and when at rest. Unfortunately we were unable to obtain a fiberoptic scope to take a look at her vocal cords, suspect there may be some vocal cord paralysis or dysfunction given her recent EGD however her symptoms did precede the procedure. They have been going on for 2 weeks and are not new. She continues to be 99% on room air. At this time there is no indication for re-admission to the hospital. Dr. Garcia also evaluated the patient at the bedside. Patient and son are agreeable to staying in the emergency room overnight and being evaluated by Physical therapy and Case Management tomorrow. Will plan to do around the clock albuterol treatment tonight and start prednisone. Will pl krysta patient in physician observation at this time. Physician observation started at 5:49pm. Patient placed in physician observation because patient is awaiting [facility] evaluation for the possible need of inpatient psych admission. At the time observation was started patient's vital signs were stable. Patient is alert and oriented. Neuro exam is non-focal. CV: RRR and lungs with forced expiratory wheezes. Will continue to monitor. <IDA Soto - Last Filed: 02/13/21 17:53> Time: 17:49 <IDA Soto - Last Filed: 02/13/21 17:53> Reevaluation #2: I agree with history physical and plan, my exam is anxious female with intermittent forced stridor but no stridor when talking and clear lungs. She feels too debillitated to go home will have her evaluated by case management <Jose Francisco Garcia MD - Last Filed: 02/13/21 18:20> Time: 18:20 <Jose Francisco Garcia MD - Last Filed: 02/13/21 18:20> Reevaluation #3: At this time physician observation will be continued to allow more time for case management to comp with a placement plan for the patient. At this time patient appears to be slightly hypertensive however, it appears as though she has been on the higher side for blood pressure since she arrived. Patient's physical exam is unchanged, no changes in neuro exam. Will continue to monitor <IDA Luther - Last Filed: 02/14/21 10:38> Time: 10:38 <IDA Luther - Last Filed: 02/14/21 10:38> MDM - URI/Sore Throat Lab Data Result diagrams: : 02/13/21 16:10 02/13/21 16:10 <IDA Soto - Last Filed: 02/13/21 17:53> Labs: Lab Results 02/13/21 02/13/21 02/13/21 Range/Units 16:10 16:10 16:10 WBC 9.7 (4.8-10.8) X10*3/uL RBC 3.64 L (4.20-5.50) X10*6/uL Hgb 7.8 L (12.0-16.0) g/dl Hct 26.6 L (37.0-47.0) % MCV 73.1 L (80.0-98.0) fL MCH 21.4 L (27.0-33.0) pg MCHC 29.3 L (31.0-35.0) g/dl RDW 25.6 H (11.0-16.0) % Plt Count 266 (160-400) X10*3/uL MPV 8.9 L (9.4-12.3) fL Immature Gran % (Auto) 1.0 H (0.0-0.4) % Neut % (Auto) 65.2 (45-73) % Lymph % (Auto) 17.4 L (20-40) % [place] % (Auto) 11.1 H (2-11) % Eos % (Auto) 4.9 H (0-4) % Baso % (Auto) 0.4 (0-2) % Lymph # (Auto) 1.7 (1.2-4.9) X10*3/uL [place] # (Auto) 1.1 (0.1-1.2) X10*3/uL Eos # (Auto) 0.5 H (0.0-0.4) X10*3/uL Baso # (Auto) 0.0 (0.0-0.2) X10*3/uL Abs Immat Gran (auto) 0.10 H (0.00-0.03) X10*3/uL Absolute Neuts (auto) 6.3 (2.0-8.3) x10*3/uL Absolute Nucleated RBC 0.000 (0.0-0.012) X10*3/uL Nucleated RBC % (auto) 0.0 (0.0-0.2) /100WBC Sodium 138 (135-145) mmol/L Potassium 4.6 (3.3-5.1) mmol/L Chloride 106 (96-108) mmol/L Carbon Dioxide 24 (22-29) mmol/L Anion Gap 13 (12-20) BUN 25 H (9-16) mg/dL Creatinine 1.06 (0.5-1.4) mg/dL Estim Creat Clear Calc 32.1 Estimated GFR 49 Random Glucose 104 (60-115) mg/dL Calcium 9.6 (8.4-10.2) mg/dL Magnesium 2.2 (1.6-2.6) mg/dL Total Bilirubin 0.4 (0.0-1.0) mg/dL Direct Bilirubin 0.2 (0.0-0.5) mg/dL AST 14 (5-31) U/L ALT 12 (0-31) U/L Alkaline Phosphatase 51 (39-117) U/L Troponin I High Sens 7.8 (<3.5-17.0) ng/L B-Natriuretic Peptide 236 H (<100) pg/mL Total Protein 6.3 L (6.5-8.0) g/dL Albumin 3.6 (3.5-5.0) g/dL Influenza Type A (PCR) (Negative) Influenza Type B (PCR) (Negative) RSV RNA Qual (PCR) (Negative) SARS-CoV-2 RNA (RT-PCR) (Negative) 02/13/21 Range/Units 16:12 WBC (4.8-10.8) X10*3/uL RBC (4.20-5.50) X10*6/uL Hgb (12.0-16.0) g/dl Hct (37.0-47.0) % MCV (80.0-98.0) fL MCH (27.0-33.0) pg MCHC (31.0-35.0) g/dl RDW (11.0-16.0) % Plt Count (160-400) X10*3/uL MPV (9.4-12.3) fL Immature Gran % (Auto) (0.0-0.4) % Neut % (Auto) (45-73) % Lymph % (Auto) (20-40) % [place] % (Auto) (2-11) % Eos % (Auto) (0-4) % Baso % (Auto) (0-2) % Lymph # (Auto) (1.2-4.9) X10*3/uL [place] # (Auto) (0.1-1.2) X10*3/uL Eos # (Auto) (0.0-0.4) X10*3/uL Baso # (Auto) (0.0-0.2) X10*3/uL Abs Immat Gran (auto) (0.00-0.03) X10*3/uL Absolute Neuts (auto) (2.0-8.3) x10*3/uL Absolute Nucleated RBC (0.0-0.012) X10*3/uL Nucleated RBC % (auto) (0.0-0.2) /100WBC Sodium (135-145) mmol/L Potassium (3.3-5.1) mmol/L Chloride (96-108) mmol/L Carbon Dioxide (22-29) mmol/L Anion Gap (12-20) BUN (9-16) mg/dL Creatinine (0.5-1.4) mg/dL Estim Creat Clear Calc Estimated GFR Random Glucose (60-115) mg/dL Calcium (8.4-10.2) mg/dL Magnesium (1.6-2.6) mg/dL Total Bilirubin (0.0-1.0) mg/dL Direct Bilirubin (0.0-0.5) mg/dL AST (5-31) U/L ALT (0-31) U/L Alkaline Phosphatase (39-117) U/L Troponin I High Sens (<3.5-17.0) ng/L B-Natriuretic Peptide (<100) pg/mL Total Protein (6.5-8.0) g/dL Albumin (3.5-5.0) g/dL Influenza Type A (PCR) NEGATIVE (Negative) Influenza Type B (PCR) NEGATIVE (Negative) RSV RNA Qual (PCR) NEGATIVE (Negative) SARS-CoV-2 RNA (RT-PCR) NEGATIVE (Negative) <IDA Soto - Last Filed: 02/13/21 17:53> Lab Results 02/13/21 02/13/21 02/13/21 Range/Units 16:10 16:10 16:10 WBC 9.7 (4.8-10.8) X10*3/uL RBC 3.64 L (4.20-5.50) X10*6/uL Hgb 7.8 L (12.0-16.0) g/dl Hct 26.6 L (37.0-47.0) % MCV 73.1 L (80.0-98.0) fL MCH 21.4 L (27.0-33.0) pg MCHC 29.3 L (31.0-35.0) g/dl RDW 25.6 H (11.0-16.0) % Plt Count 266 (160-400) X10*3/uL MPV 8.9 L (9.4-12.3) fL Immature Gran % (Auto) 1.0 H (0.0-0.4) % Neut % (Auto) 65.2 (45-73) % Lymph % (Auto) 17.4 L (20-40) % [place] % (Auto) 11.1 H (2-11) % Eos % (Auto) 4.9 H (0-4) % Baso % (Auto) 0.4 (0-2) % Lymph # (Auto) 1.7 (1.2-4.9) X10*3/uL [place] # (Auto) 1.1 (0.1-1.2) X10*3/uL Eos # (Auto) 0.5 H (0.0-0.4) X10*3/uL Baso # (Auto) 0.0 (0.0-0.2) X10*3/uL Abs Immat Gran (auto) 0.10 H (0.00-0.03) X10*3/uL Absolute Neuts (auto) 6.3 (2.0-8.3) x10*3/uL Absolute Nucleated RBC 0.000 (0.0-0.012) X10*3/uL Nucleated RBC % (auto) 0.0 (0.0-0.2) /100WBC Sodium 138 (135-145) mmol/L Potassium 4.6 (3.3-5.1) mmol/L Chloride 106 (96-108) mmol/L Carbon Dioxide 24 (22-29) mmol/L Anion Gap 13 (12-20) BUN 25 H (9-16) mg/dL Creatinine 1.06 (0.5-1.4) mg/dL Estim Creat Clear Calc 32.1 Estimated GFR 49 Random Glucose 104 (60-115) mg/dL Calcium 9.6 (8.4-10.2) mg/dL Magnesium 2.2 (1.6-2.6) mg/dL Total Bilirubin 0.4 (0.0-1.0) mg/dL Direct Bilirubin 0.2 (0.0-0.5) mg/dL AST 14 (5-31) U/L ALT 12 (0-31) U/L Alkaline Phosphatase 51 (39-117) U/L Troponin I High Sens 7.8 (<3.5-17.0) ng/L B-Natriuretic Peptide 236 H (<100) pg/mL Total Protein 6.3 L (6.5-8.0) g/dL Albumin 3.6 (3.5-5.0) g/dL Influenza Type A (PCR) (Negative) Influenza Type B (PCR) (Negative) RSV RNA Qual (PCR) (Negative) SARS-CoV-2 RNA (RT-PCR) (Negative) 02/13/21 Range/Units 16:12 WBC (4.8-10.8) X10*3/uL RBC (4.20-5.50) X10*6/uL Hgb (12.0-16.0) g/dl Hct (37.0-47.0) % MCV (80.0-98.0) fL MCH (27.0-33.0) pg MCHC (31.0-35.0) g/dl RDW (11.0-16.0) % Plt Count (160-400) X10*3/uL MPV (9.4-12.3) fL Immature Gran % (Auto) (0.0-0.4) % Neut % (Auto) (45-73) % Lymph % (Auto) (20-40) % [place] % (Auto) (2-11) % Eos % (Auto) (0-4) % Baso % (Auto) (0-2) % Lymph # (Auto) (1.2-4.9) X10*3/uL [place] # (Auto) (0.1-1.2) X10*3/uL Eos # (Auto) (0.0-0.4) X10*3/uL Baso # (Auto) (0.0-0.2) X10*3/uL Abs Immat Gran (auto) (0.00-0.03) X10*3/uL Absolute Neuts (auto) (2.0-8.3) x10*3/uL Absolute Nucleated RBC (0.0-0.012) X10*3/uL Nucleated RBC % (auto) (0.0-0.2) /100WBC Sodium (135-145) mmol/L Potassium (3.3-5.1) mmol/L Chloride (96-108) mmol/L Carbon Dioxide (22-29) mmol/L Anion Gap (12-20) BUN (9-16) mg/dL Creatinine (0.5-1.4) mg/dL Estim Creat Clear Calc Estimated GFR Random Glucose (60-115) mg/dL Calcium (8.4-10.2) mg/dL Magnesium (1.6-2.6) mg/dL Total Bilirubin (0.0-1.0) mg/dL Direct Bilirubin (0.0-0.5) mg/dL AST (5-31) U/L ALT (0-31) U/L Alkaline Phosphatase (39-117) U/L Troponin I High Sens (<3.5-17.0) ng/L B-Natriuretic Peptide (<100) pg/mL Total Protein (6.5-8.0) g/dL Albumin (3.5-5.0) g/dL Influenza Type A (PCR) NEGATIVE (Negative) Influenza Type B (PCR) NEGATIVE (Negative) RSV RNA Qual (PCR) NEGATIVE (Negative) SARS-CoV-2 RNA (RT-PCR) NEGATIVE (Negative) <Jose Francisco Garcia MD - Last Filed: 02/13/21 18:20> Lab Results 02/13/21 02/13/21 02/13/21 Range/Units 16:10 16:10 16:10 WBC 9.7 (4.8-10.8) X10*3/uL RBC 3.64 L (4.20-5.50) X10*6/uL Hgb 7.8 L (12.0-16.0) g/dl Hct 26.6 L (37.0-47.0) % MCV 73.1 L (80.0-98.0) fL MCH 21.4 L (27.0-33.0) pg MCHC 29.3 L (31.0-35.0) g/dl RDW 25.6 H (11.0-16.0) % Plt Count 266 (160-400) X10*3/uL MPV 8.9 L (9.4-12.3) fL Immature Gran % (Auto) 1.0 H (0.0-0.4) % Neut % (Auto) 65.2 (45-73) % Lymph % (Auto) 17.4 L (20-40) % [place] % (Auto) 11.1 H (2-11) % Eos % (Auto) 4.9 H (0-4) % Baso % (Auto) 0.4 (0-2) % Lymph # (Auto) 1.7 (1.2-4.9) X10*3/uL [place] # (Auto) 1.1 (0.1-1.2) X10*3/uL Eos # (Auto) 0.5 H (0.0-0.4) X10*3/uL Baso # (Auto) 0.0 (0.0-0.2) X10*3/uL Abs Immat Gran (auto) 0.10 H (0.00-0.03) X10*3/uL Absolute Neuts (auto) 6.3 (2.0-8.3) x10*3/uL Absolute Nucleated RBC 0.000 (0.0-0.012) X10*3/uL Nucleated RBC % (auto) 0.0 (0.0-0.2) /100WBC Sodium 138 (135-145) mmol/L Potassium 4.6 (3.3-5.1) mmol/L Chloride 106 (96-108) mmol/L Carbon Dioxide 24 (22-29) mmol/L Anion Gap 13 (12-20) BUN 25 H (9-16) mg/dL Creatinine 1.06 (0.5-1.4) mg/dL Estim Creat Clear Calc 32.1 Estimated GFR 49 Random Glucose 104 (60-115) mg/dL Calcium 9.6 (8.4-10.2) mg/dL Magnesium 2.2 (1.6-2.6) mg/dL Total Bilirubin 0.4 (0.0-1.0) mg/dL Direct Bilirubin 0.2 (0.0-0.5) mg/dL AST 14 (5-31) U/L ALT 12 (0-31) U/L Alkaline Phosphatase 51 (39-117) U/L Troponin I High Sens 7.8 (<3.5-17.0) ng/L B-Natriuretic Peptide 236 H (<100) pg/mL Total Protein 6.3 L (6.5-8.0) g/dL Albumin 3.6 (3.5-5.0) g/dL Influenza Type A (PCR) (Negative) Influenza Type B (PCR) (Negative) RSV RNA Qual (PCR) (Negative) SARS-CoV-2 RNA (RT-PCR) (Negative) 02/13/21 Range/Units 16:12 WBC (4.8-10.8) X10*3/uL RBC (4.20-5.50) X10*6/uL Hgb (12.0-16.0) g/dl Hct (37.0-47.0) % MCV (80.0-98.0) fL MCH (27.0-33.0) pg MCHC (31.0-35.0) g/dl RDW (11.0-16.0) % Plt Count (160-400) X10*3/uL MPV (9.4-12.3) fL Immature Gran % (Auto) (0.0-0.4) % Neut % (Auto) (45-73) % Lymph % (Auto) (20-40) % [place] % (Auto) (2-11) % Eos % (Auto) (0-4) % Baso % (Auto) (0-2) % Lymph # (Auto) (1.2-4.9) X10*3/uL [place] # (Auto) (0.1-1.2) X10*3/uL Eos # (Auto) (0.0-0.4) X10*3/uL Baso # (Auto) (0.0-0.2) X10*3/uL Abs Immat Gran (auto) (0.00-0.03) X10*3/uL Absolute Neuts (auto) (2.0-8.3) x10*3/uL Absolute Nucleated RBC (0.0-0.012) X10*3/uL Nucleated RBC % (auto) (0.0-0.2) /100WBC Sodium (135-145) mmol/L Potassium (3.3-5.1) mmol/L Chloride (96-108) mmol/L Carbon Dioxide (22-29) mmol/L Anion Gap (12-20) BUN (9-16) mg/dL Creatinine (0.5-1.4) mg/dL Estim Creat Clear Calc Estimated GFR Random Glucose (60-115) mg/dL Calcium (8.4-10.2) mg/dL Magnesium (1.6-2.6) mg/dL Total Bilirubin (0.0-1.0) mg/dL Direct Bilirubin (0.0-0.5) mg/dL AST (5-31) U/L ALT (0-31) U/L Alkaline Phosphatase (39-117) U/L Troponin I High Sens (<3.5-17.0) ng/L B-Natriuretic Peptide (<100) pg/mL Total Protein (6.5-8.0) g/dL Albumin (3.5-5.0) g/dL Influenza Type A (PCR) NEGATIVE (Negative) Influenza Type B (PCR) NEGATIVE (Negative) RSV RNA Qual (PCR) NEGATIVE (Negative) SARS-CoV-2 RNA (RT-PCR) NEGATIVE (Negative) <IDA Luther - Last Filed: 02/14/21 10:38> Critical Care Time Critical Care Time Critical Care Time: Yes <IDA Soto - Last Filed: 02/13/21 17:53> Total Critical Care Time: 37 <IDA Soto - Last Filed: 02/13/21 17:53> Attestation: I have personally provided critical care time exclusive of time spent on separately billable procedures. Time includes review of lab data, radiology results, discussion with consultants, and monitoring for potential decompensation. Intervention performed as documented. <IDA Soto - Last Filed: 02/13/21 17:53> Discharge Plan Discharge Clinical Impression: Shortness of breath, Wheezing, Congestion of upper airway <IDA Soto - Last Filed: 02/13/21 17:53> Prescriptions: No Action melatonin 3 mg tablet 2 tab PO BEDTIME RF: 0 amlodipine 5 mg tablet 1 tab PO DAILY RF: 0 ropinirole 0.25 mg tablet 1 tab PO BEDTIME RF: 0 gabapentin 300 mg capsule 1 cap PO TID RF: 0 montelukast 10 mg tablet 1 tab PO BEDTIME RF: 0 furosemide 20 mg tablet 1 tab PO DAILY RF: 0 metoprolol succinate 25 mg tablet extended release 24 hr 1 tab PO DAILY RF: 0 albuterol sulfate 90 mcg/actuation HFA aerosol inhaler 2 puff inhalation Q4H PRN (Reason: wheezing) RF: 0 fluoxetine 20 mg capsule 1 cap PO DAILY RF: 0 loratadine 10 mg tablet 1 tab PO DAILY RF: 0 omeprazole 20 mg Capsule,Delayed Release(Dr/Ec) 20 mg PO BID@0630,1630 Qty: 60 RF: 0 sucralfate 1 gram Tablet 1 g PO QIDACHS RF: 0 aspirin 81 mg Tablet,Delayed Release (Dr/Ec) 81 mg PO DAILY RF: 0 simethicone [Gas-X] 80 mg Tablet,Chewable 80 mg PO QIDWMHS PRN (Reason: GAS PAIN) RF: 0 <IDA Soto - Last Filed: 02/13/21 17:53>
[2021-02-13] MEDS: Albuterol Sulfate (0.083%) 2.5 MG/3 ML VIAL.NEB 10 MG INHALE (15:49)
--- NOTE | 2021-02-13 15:59 | PC.NURSE ---
patient a&ox3, hydraulic press tender nsr 70s, vss, cxr performed, iv inserted, tech will attempt labs-provider aware, family at bedside, rt giving updraft, will continue to monitor.
[2021-02-13 16:18] LABS: MANUAL DIFF FLAG NO
[2021-02-13 16:19] LABS: Basophils Percent Auto 0.4 % (0-2); Eosinophils Absolute Auto 0.5 X10*3/uL (0.0-0.4); Eosinophils Percent Auto 4.9 % (0-4); Hematocrit 26.6 % (37.0-47.0); Hemoglobin 7.8 g/dl (12.0-16.0); Lymphocytes Absolute Auto 1.7 X10*3/uL (1.2-4.9); Lymphocytes Percent Auto 17.4 % (20-40); Mean Corpuscular HGB Conc 29.3 g/dl (31.0-35.0); Mean Corpuscular Hemoglobin 21.4 pg (27.0-33.0); Mean Corpuscular Volume 73.1 fL (80.0-98.0); Mean Platelet Volume 8.9 fL (9.4-12.3); Monocytes Absolute Auto 1.1 X10*3/uL (0.1-1.2); Monocytes Percent Auto 11.1 % (2-11); Neutrophils Absolute Auto 6.3 x10*3/uL (2.0-8.3); Neutrophils Percent Auto 65.2 % (45-73); Platelet Count 266 X10*3/uL (160-400); Red Blood Count 3.64 X10*6/uL (4.20-5.50); Red Cell Distribution Width 25.6 % (11.0-16.0); White Blood Count 9.7 X10*3/uL (4.8-10.8)
[2021-02-13 16:33] LABS: Alanine Aminotransferase 12 U/L (0-31); Albumin Level 3.6 g/dL (3.5-5.0); Alkaline Phosphatase 51 U/L (39-117); Anion Gap 13 (12-20); Aspartate Amino Transferase 14 U/L (5-31); Bilirubin Direct 0.2 mg/dL (0.0-0.5); Bilirubin Total 0.4 mg/dL (0.0-1.0); Blood Urea Nitrogen 25 mg/dL (9-16); Calcium 9.6 mg/dL (8.4-10.2); Carbon Dioxide 24 mmol/L (22-29); Chloride 106 mmol/L (96-108); Creatinine Clr Calc Pharmacy 32.1; Estimated Glomerular Filt Rate 49; Glucose Random 104 mg/dL (60-115); Magnesium 2.2 mg/dL (1.6-2.6); Potassium 4.6 mmol/L (3.3-5.1); Sodium 138 mmol/L (135-145); Total Protein 6.3 g/dL (6.5-8.0)
[2021-02-13 16:38] LABS: B Type Natriuretic Peptide 236 pg/mL (<100); Troponin-I High Sensitivity 7.8 ng/L (<3.5-17.0)
[2021-02-13 16:56] LABS: Influenza A PCR NEGATIVE (Negative); Influenza B PCR NEGATIVE (Negative); Resp Syncy Virus RNA Qual PCR NEGATIVE (Negative); SARS COV2 PCR INHOUSE NEGATIVE (Negative)
[2021-02-13] MEDS: methylPREDNISolone Sod Succ 40 MG/ML VIAL IVPUSH (17:21)
--- NOTE | 2021-02-13 17:24 | PC.NURSE ---
patient a&ox3, family at bedside, vss, cardiac rn nsr 90s, pt medicated per order, will continue to monitor.
[2021-02-13] MEDS: Albuterol Sulfate (0.083%) 2.5 MG/3 ML VIAL.NEB 5 MG INHALE (18:11)
--- NOTE | 2021-02-13 18:18 | PHA.MEDREC ---
MED REC COMPLETE, NO ISSUES Pharmacy Consult ? Medication Reconciliation Pharmacy has completed the medication reconciliation.
[2021-02-13] MEDS: rOPINIRole HCL 0.25 MG TABLET PO (21:39)
[2021-02-13] MEDS: Gabapentin 300 MG CAPSULE PO (21:39)
[2021-02-13] MEDS: Montelukast Sodium 10 MG TABLET PO (21:39)
[2021-02-13] MEDS: Omeprazole 20 MG CAPSULE.DR PO (21:39)
[2021-02-13] MEDS: Melatonin 3 MG TABLET 6 MG PO (21:39)
--- NOTE | 2021-02-13 21:41 | PC.NURSE ---
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
[2021-02-14] VITALS (10 sets, daily range): BP systolic 137–168; BP diastolic 48–71; PULSE 82–99; RESP 14–20; TEMP 36.5–36.8; O2SAT 95–100
[2021-02-14] MEDS: Albuterol Sulfate (0.083%) 2.5 MG/3 ML VIAL.NEB 5 MG INHALE ×3 (00:38→12:08)
[2021-02-14] MEDS: Omeprazole 20 MG CAPSULE.DR PO ×2 (06:20→15:46)
[2021-02-14] MEDS: Sucralfate 1 GM TABLET PO ×3 (08:42→15:46)
[2021-02-14] MEDS: amLODIPine Besylate 5 MG TABLET PO (08:42)
[2021-02-14] MEDS: FLUoxetine HCl 20 MG CAPSULE PO (08:42)
[2021-02-14] MEDS: Metoprolol Succinate ER 25 MG TAB.ER.24H PO (08:42)
[2021-02-14] MEDS: predniSONE 20 MG TABLET 40 MG PO (08:43)
[2021-02-14] MEDS: Loratadine 10 MG TABLET PO (08:43)
[2021-02-14] MEDS: Furosemide 20 MG TABLET PO (08:43)
[2021-02-14] MEDS: Gabapentin 300 MG CAPSULE PO ×2 (08:43→15:46)
[2021-02-14] MEDS: Aspirin Enteric Coated 81 MG TABLET.DR PO (08:44)
--- NOTE | 2021-02-14 12:50 | MHC.CM.ED ---
Addendum entered by Anais Verdugo 02/14/21 15:26: [facility] is not able to see patient before Friday. [facility] able to accept. Original Note: Received case management consult overnight. Patient came to the ER due to shortness of breath. Work up essentially negative. Physical therapy eval completed. Short term rehab is recommended. Met with patient in regards to discharge planning. Patient lives with her son, uses a walker for mobility and had no services prior to coming to the ER. PCP verified as Dr Matute. Copy of HCP verified to be on file. Patient received 1 dose of Pfizer vaccine on 12/21. Patient has been to [facility] in the past and is requesting referral be made to that facility. Referral made via [employer]. They are not able to offer a bed at this time. Patient made aware. Patient became upset and wanted T/W to speak with her son Tai. T/W spoke with Tai via telephone at [phone]. Tai does not want patient to go to any other facility because patient had bad experiences at other facilities. Tai wants patient to be discharged home with VNA. Tai will pick patient up in ER around 430pm when he gets out of work. Patient, Adonay RN and Dr Albarado aware. Referral made to [facility] via [facility]. Continue to monitor for d/c needs.
== END 2021-02-14 17:46 | disposition home or self-care (01) ==
PROVIDERS: Physician Assistant; Emergency Provider Emergency Medicine; PCP Family Medicine
DX: J44.9 Chronic obstructive pulmonary disease, unspecified (principal); R06.02 Shortness of breath; R06.2 Wheezing; Z20.822 Contact with and (suspected) exposure to COVID-19; J02.9 Acute pharyngitis, unspecified; I11.0 Hypertensive heart disease with heart failure; I50.9 Heart failure, unspecified; Z79.899 Other long term (current) drug therapy; Z79.82 Long term (current) use of aspirin
CPT/HCPCS: 0241U; 36415; 70490; 71045; 80048; 80076; 83735; 83880; 84484; 85025; 94640; 94644; 96374; 97162; 99285; 99291; J2920

== ENCOUNTER 2021-04-27 06:27 | Day surgery (SDC) | payer MEDICARE, SELFPAY ==
[2021-04-19 14:03] VITALS: BMI 27.8
--- NOTE | 2021-04-26 09:55 | P.CONAN_ITS ---
Documented by User: Aliya Ma NP 04/26/21 09:58 HPI - Anesthesia Eval Consult details Narrative: 85yo F for Upper Endoscopy s/p EGD 01/2021 with TIVA (repeat to assess for ulcer healing) PMFSH Active Problems Active Problems: All Active Problems (Updated 04/19/21 @ 11:35 by iNda Espinoza RN) Weakness (Acute) Anemia (Acute) Past Medical History Medical History CHF (congestive heart failure) Chronic renal disease Constipation COPD (chronic obstructive pulmonary disease) COVID-19 History of blood transfusion HTN (hypertension) Osteoarthritis Osteoporosis Ovarian tumor Uses walker Weakness of both lower extremities Family History Family History Father PUD (peptic ulcer disease) Family history of problems with anesthesia: No Surgical History Surgical History (Updated 04/19/21 @ 11:36 by Nida Espinoza RN) History of appendectomy History of cholecystectomy History of kidney surgery History of total abdominal hysterectomy Hx of colonoscopy History of Problems with Anesthesia: No Social History Social History Household Members: Family and Other Household Members Other:: lives with son Housing: House Are you a primary day care assistant to a significant other at home: No Do you presently have visiting nurse or other home services: No Alcohol intake: current Alcohol intake frequency: a few times a week Alcohol type: wine Patient Tobacco Use Status: Former Tobacco user Quit Date: 1994 Tobacco use type: Cigarette Use of substances other than those prescribed or required for medical reasons: No Have you been hit, kicked, punched, or otherwise hurt by someone within the past year? If so, by whom?: No Are you DNR?: No Advance Directives: Yes Advance Directives Information Provided: Yes Advance Directives on File: No Advance Directives Date on File: 02/09/20 Recently lost weight without trying: No Nutrition Risks: Surgical patient >75years service: No Current occupational status: retired Meds Allergies Allergy/AdvReac Type Severity Reaction Status Date / Time blue dye [BLUE DYE] Allergy Severe RASH,SOB Verified 04/27/21 06:56 codeine [CODEINE] Allergy Severe RASH,SOB Verified 04/27/21 06:56 Penicillins Allergy Severe Rash, SOB Verified 04/27/21 06:56 morphine AdvReac Intermediate tachycardia Verified 04/27/21 06:56 Home Medications Medication Instructions Recorded Confirmed Last Taken Type albuterol sulfate 90 mcg/actuation 2 puff INHALATION Q4H PRN 02/08/21 04/19/21 Unknown History aerosol inhaler amlodipine 5 mg tablet 1 tab PO DAILY 02/08/21 04/19/21 02/13/21 History fluoxetine 20 mg capsule 1 cap PO DAILY 02/08/21 04/19/21 02/13/21 History furosemide 20 mg tablet 1 tab PO DAILY 02/08/21 04/19/21 02/13/21 History gabapentin 300 mg capsule 1 cap PO TID 02/08/21 04/19/21 02/13/21 History loratadine 10 mg tablet 1 tab PO DAILY 02/08/21 04/19/21 02/13/21 History melatonin 3 mg tablet 2 tab PO BEDTIME 02/08/21 04/19/21 02/12/21 History metoprolol succinate 25 mg 1 tab PO DAILY 02/08/21 04/19/21 02/13/21 History tablet,extended release 24 hr montelukast 10 mg tablet 1 tab PO BEDTIME 02/08/21 04/19/21 02/12/21 History ropinirole 0.25 mg tablet 1 tab PO BEDTIME 02/08/21 04/19/21 02/12/21 History aspirin 81 mg tablet,delayed 81 mg PO DAILY 02/13/21 04/19/21 04/20/21 History release simethicone 80 mg chewable tablet 80 mg PO QIDWMHS PRN 02/13/21 04/19/21 Unknown History sucralfate 1 gram tablet 1 g PO BID 02/13/21 04/19/21 02/13/21 History Exam Exam Date and Time: April 26, [id number] Height,Weight and Vital Signs: Height 4 ft 11.5 in Weight 63.503 kg Pertinent Lab Results Pertinent Lab Results: Laboratory Tests 02/13/21 02/13/21 16:10 16:10 WBC 9.7 Hgb 7.8 L Hct 26.6 L Plt Count 266 Sodium 138 Potassium 4.6 Chloride 106 Carbon Dioxide 24 BUN 25 H Creatinine 1.06 Repeat H&H at [facility] 02/21/21 = 8.7&29.3 Narrative Narrative: EKG 01/2021 Vent. Rate : 089 BPM ? ? Atrial Rate : 089 BPM ?? P-R Int : 188 ms? QRS Dur : 116 ms ? ? QT Int : 384 ms ? ? ? P-R-T Axes : 087 -18 086 degrees ?? QTc Int : 467 ms ? Normal sinus rhythm Left ventricular hypertrophy with QRS widening and repolarization abnormality ( R in aVL , Kike product ) Abnormal ECG When compared with ECG of 09-FEB-2020 11:32, Minimal criteria for Septal infarct are no longer Present Assessment and Plan Assessment Anesthesia Assessment: Chart Reviewed Final Anesthetic Review Family History of Problems with Anesthesia: No History of Problems with Anesthesia: No Documented by User: Phillip Gore MD 04/27/21 07:24 [facility] Past Medical History Medical History CHF (congestive heart failure) Chronic renal disease Constipation COPD (chronic obstructive pulmonary disease) COVID-19 History of blood transfusion HTN (hypertension) Osteoarthritis Osteoporosis Ovarian tumor Uses walker Weakness of both lower extremities Family History Family History Father PUD (peptic ulcer disease) Family history of problems with anesthesia: No Surgical History Surgical History (Updated 04/19/21 @ 11:36 by Nida Espinoza RN) History of appendectomy History of cholecystectomy History of kidney surgery History of total abdominal hysterectomy Hx of colonoscopy History of Problems with Anesthesia: No Social History Social History Household Members: Family and Other Household Members Other:: lives with son Housing: House Are you a primary day care assistant to a significant other at home: No Do you presently have visiting nurse or other home services: No Alcohol intake: current Alcohol intake frequency: a few times a week Alcohol type: wine Patient Tobacco Use Status: Former Tobacco user Quit Date: 1994 Tobacco use type: Cigarette Use of substances other than those prescribed or required for medical reasons: No Have you been hit, kicked, punched, or otherwise hurt by someone within the past year? If so, by whom?: No Are you DNR?: No Advance Directives: Yes Advance Directives Information Provided: Yes Advance Directives on File: No Advance Directives Date on File: 02/09/20 Recently lost weight without trying: No Nutrition Risks: Surgical patient >75years service: No Current occupational status: retired [employer] Allergies Allergy/AdvReac Type Severity Reaction Status Date / Time blue dye [BLUE DYE] Allergy Severe RASH,SOB Verified 04/27/21 06:56 codeine [CODEINE] Allergy Severe RASH,SOB Verified 04/27/21 06:56 Penicillins Allergy Severe Rash, SOB Verified 04/27/21 06:56 morphine AdvReac Intermediate tachycardia Verified 04/27/21 06:56 Home Medications Medication Instructions Recorded Confirmed Last Taken Type albuterol sulfate 90 mcg/actuation 2 puff INHALATION Q4H PRN 02/08/21 04/19/21 Unknown History aerosol inhaler amlodipine 5 mg tablet 1 tab PO DAILY 02/08/21 04/19/21 02/13/21 History fluoxetine 20 mg capsule 1 cap PO DAILY 02/08/21 04/19/21 02/13/21 History furosemide 20 mg tablet 1 tab PO DAILY 02/08/21 04/19/21 02/13/21 History gabapentin 300 mg capsule 1 cap PO TID 02/08/21 04/19/21 02/13/21 History loratadine 10 mg tablet 1 tab PO DAILY 02/08/21 04/19/21 02/13/21 History melatonin 3 mg tablet 2 tab PO BEDTIME 02/08/21 04/19/21 02/12/21 History metoprolol succinate 25 mg 1 tab PO DAILY 02/08/21 04/19/21 02/13/21 History tablet,extended release 24 hr montelukast 10 mg tablet 1 tab PO BEDTIME 02/08/21 04/19/21 02/12/21 History ropinirole 0.25 mg tablet 1 tab PO BEDTIME 02/08/21 04/19/21 02/12/21 History aspirin 81 mg tablet,delayed 81 mg PO DAILY 02/13/21 04/19/21 04/20/21 History release simethicone 80 mg chewable tablet 80 mg PO QIDWMHS PRN 02/13/21 04/19/21 Unknown History sucralfate 1 gram tablet 1 g PO BID 02/13/21 04/19/21 02/13/21 History Exam Airway Mallampati Class: II TM Dist: <=3cm Neck ROM: Full Loose/Missing/Broken Teeth: Yes, Upper and Lower Heart: ok Lungs: ok Assessment and Plan Final Anesthetic Review Family History of Problems with Anesthesia: No History of Problems with Anesthesia: No NPO: Yes ASA Class: IV Final Preanesthetic Review: No Changes in Pt Med Stat, Meds/Allgs Chart Reviewed, Consent Obtained/Reviewed and Anes Risks/Benef Reviewed Patient Risk: High Procedure Risk: Intermediate Anesthetic Plan Anesthetic Plan: MAC: and Agree w/ Assess. and Plan Disposition: Standard PACU
[2021-04-27 06:57] VITALS: BP 182/71; PULSE 80; RESP 24; TEMP 36.2; O2SAT 97
[2021-04-27] MEDS: Lactated Ringers 1,000 ML 50 ML IVCONT (07:30)
--- NOTE | 2021-04-27 07:44 | MHC.SHP ---
Pre-Procedural Eval Section A Date of Service: 04/27/21 Section B Chief Complaint: gastric ulcer Relevant Family History (Specify if Yes): No Relevant Social History: None Present Medications: see Short Stay Collaborative assessment Medical History: No relevant PMH History of Previous Operations: No relevant previous surgery Allergies: Allergies Allergy/AdvReac Type Severity Reaction Status Date / Time blue dye [BLUE DYE] Allergy Severe RASH,SOB Verified 04/27/21 06:56 codeine [CODEINE] Allergy Severe RASH,SOB Verified 04/27/21 06:56 Penicillins Allergy Severe Rash, SOB Verified 04/27/21 06:56 morphine AdvReac Intermediate tachycardia Verified 04/27/21 06:56 Review of Systems Sugical H&P ROS: Negative: Constitution, Cardiovascular, Respiratory, Neurological, Psychiatric, Hem-Onc, Allergic/Immunologic, Gastrointestinal, Genitourinary, Musculoskeletal, Integumentary, Endocrine and Eyes/Ears/Nose/Throat Exam Surgical H&P Exam: Normal: HEENT, Normal: Heart, Normal: Lungs, Normal: Extremities, Normal: Abdomen, Normal: Skin and Normal: Neurological Plan Diagnosis/Plan: Unchanged I have reviewed the history and physical and performed a pertinent physical examination on my patient. No changes have occurred unless specified.
[2021-04-27 07:58] VITALS: BP 133/65; PULSE 87; RESP 18; TEMP 37.6; O2SAT 94
--- NOTE | 2021-04-27 07:59 | PM.OP ---
Brief Operative Note Date of Service: 04/27/21 Pre-op diagnosis: gastric ulcer Post-op diagnosis: same (erosive gastritis) Procedure: EGD Surgeon: Tevin Calderón Anesthesia: MAC Was an Line Service Technician used for this Procedure?: No Estimated blood loss (mL): 5 Pathology: other (antral bxs, gastric bxs) Condition: stable Disposition: PACU
[2021-04-27 08:18] VITALS: BP 161/66; PULSE 84; RESP 18; TEMP 37.3; O2SAT 95
--- NOTE | 2021-04-27 08:27 | OP_ITS ---
SURGEON: Tevin Calderón MD INDICATIONS: Gastric ulcer. PREOPERATIVE DIAGNOSIS: POSTOPERATIVE DIAGNOSIS: PROCEDURE PERFORMED: Upper endoscopy with biopsy. ESTIMATED BLOOD LOSS: COMPLICATIONS: ANESTHESIA: Monitored anesthesia care. ASSISTANTS: SPECIMENS: DESCRIPTION OF PROCEDURE: History and physical were performed. The risks and benefits of the procedure were explained to the patient. Informed consent was obtained. The patient was placed in the left lateral decubitus position. The Olympus video gastroscope was introduced into the esophagus, stomach, and duodenum. Examination was performed and the scope was removed. She tolerated the procedure well and was returned to the recovery area in stable condition. FINDINGS: Esophagus: The esophagus was normal. There was no esophagitis. The EG junction was slightly irregular. Stomach: There was a moderate-sized hiatal hernia as previously identified with linear erosions at the level of the hiatal hernia consistent with Toribio erosions. The previously identified gastric ulcer was healed with no evidence of malignancy. There was no bleeding. Biopsies were obtained from the body of the stomach at the level of the hiatal hernia. Antral biopsies were also obtained. Duodenum: The bulb and second portion were normal. IMPRESSION: Hiatal hernia with Toribio erosions. RECOMMENDATIONS: Follow up the biopsy results. MD DINH Morgan/DAVID / [id number]
== END 2021-04-27 09:02 | disposition home or self-care (01) ==
PROVIDERS: PCP Family Medicine; Visit Provider Internal Medicine Gastroenterology
PROC: 0DJ08ZZ Inspection of Upper Intestinal Tract, Via Natural or Artificial Opening Endoscopic (ICD-10-PCS; CPT 43235; principal; 2021-04-27 07:30)
DX: K25.4 Chronic or unspecified gastric ulcer with hemorrhage (principal); K29.50 Unspecified chronic gastritis without bleeding; K44.9 Diaphragmatic hernia without obstruction or gangrene; I11.0 Hypertensive heart disease with heart failure; I50.9 Heart failure, unspecified; J44.9 Chronic obstructive pulmonary disease, unspecified; Z90.49 Acquired absence of other specified parts of digestive tract; Z86.16 Personal history of COVID-19; Z87.891 Personal history of nicotine dependence
CPT/HCPCS: 43239; 88305; 88342; J3010

== ENCOUNTER 2022-01-10 17:13 | Emergency (ER) | payer MEDICARE, SELFPAY ==
[2022-01-10 17:49] LABS: Glucose, Whole Blood 288 mg/dL (60-115)
--- NOTE | 2022-01-10 18:05 | PC.NURSE ---
1800 [facility] contacted, pt declined. REF #: [id number].
[2022-01-10 18:10] VITALS: BMI 29.2
--- NOTE | 2022-01-10 18:11 | PC.NURSE ---
EMS called for syncope, witnessed bradycardia to asystole, CPR started at 2047. valerie airway placed by EMS, vomiting noted. 100cc NS and 4 epi given IO R tib [place]T. POC by EMS 324. pt arrived at 1710, CPR in progress. pt asystole, no pulse noted. see code blue paperwork for code report. time of : 1724, pt cleaned and prepped for family, family waiting in results pending and brought to room by provider.
--- NOTE | 2022-01-10 19:36 | ED.CPR ---
HPI - CPR General Chief Complaint: Cardiac Arrest/CPR Stated Complaint: cardiac arrest Time Seen by Provider: 01/10/22 17:22 Source: EMS Mode of arrival: EMS Limitations: other (In cardiac arrest) History of Present Illness HPI narrative: Patient comes to the emergency room via EMS. EMS was called to the patient's residence for a syncopal episode. EMS reports that the patient had witnessed bradycardia leading to a systole. CPR was started at the patient's residence and continued in route to the hospital. According to EMS, patient received for epinephrine via IO prior to arrival. When patient arrived to the emergency room, patient was still in a systole. Point of care 324. Patient's son reports that the patient was getting ready to go out to play being with her friends, when patient was walking down the ramp outside of her house, patient told her son that she had severe dizziness and loss consciousness almost immediately. Related Data Home Medications Medication Instructions Recorded Confirmed albuterol sulfate 90 mcg/actuation 2 puff inhalation Q4H PRN wheezing 02/08/21 04/19/21 aerosol inhaler amlodipine 5 mg tablet 1 tab PO DAILY 02/08/21 04/19/21 fluoxetine 20 mg capsule 1 cap PO DAILY 02/08/21 04/19/21 furosemide 20 mg tablet 1 tab PO DAILY 02/08/21 04/19/21 gabapentin 300 mg capsule 1 cap PO TID 02/08/21 04/19/21 loratadine 10 mg tablet 1 tab PO DAILY 02/08/21 04/19/21 melatonin 3 mg tablet 2 tab PO BEDTIME 02/08/21 04/19/21 metoprolol succinate 25 mg 1 tab PO DAILY 02/08/21 04/19/21 tablet,extended release 24 hr montelukast 10 mg tablet 1 tab PO BEDTIME 02/08/21 04/19/21 ropinirole 0.25 mg tablet 1 tab PO BEDTIME 02/08/21 04/19/21 aspirin 81 mg tablet,delayed 81 mg PO DAILY 02/13/21 04/19/21 release simethicone 80 mg chewable tablet 80 mg PO QIDWMHS PRN GAS PAIN 02/13/21 04/19/21 sucralfate 1 gram tablet 1 g PO BID 02/13/21 04/19/21 Previous Rx's Medication Instructions Recorded omeprazole 20 mg capsule,delayed 20 mg PO BID@0630,1630 #60 caps 02/10/21 release Allergies Allergy/AdvReac Type Severity Reaction Status Date / Time blue dye [BLUE DYE] Allergy Severe RASH,SOB Verified 04/27/21 06:56 codeine [CODEINE] Allergy Severe RASH,SOB Verified 04/27/21 06:56 Penicillins Allergy Severe Rash, SOB Verified 04/27/21 06:56 morphine AdvReac Intermediate tachycardia Verified 04/27/21 06:56 Review of Systems Review of Systems: Yes Other [facility] Past Medical History Medical History CHF (congestive heart failure) Chronic renal disease Constipation COPD (chronic obstructive pulmonary disease) COVID-19 History of blood transfusion HTN (hypertension) Osteoarthritis Osteoporosis Ovarian tumor Uses walker Weakness of both lower extremities Surgical History History of appendectomy History of cholecystectomy History of kidney surgery History of total abdominal hysterectomy Hx of colonoscopy Family History Family History Father PUD (peptic ulcer disease) Social History Social History Household Members: Family and Other Household Members Other:: lives with son Housing: House Are you a primary early breastfeeding care specialist to a significant other at home: No Do you presently have visiting nurse or other home services: No Alcohol intake: current Alcohol intake frequency: a few times a week Alcohol type: wine Patient Tobacco Use Status: Former Tobacco user Quit Date: 1994 Tobacco use type: Cigarette Advance Directives: Yes Advance Directives on File: Yes Advance Directives Date on File: 02/09/20 service: No Current occupational status: retired Physical Exam Vital Signs: Vital Signs: BMI result Body Mass Index 29.2 Const: Other: Appearance: Unresponsive Eyes: Pupils equal, round, not reactive to light ENT: Peña airway in place, copious vomitus in the oral pharynx and coming out through the Peña airway Neck: Normal inspection. Neck supple. No lymph nodes noted. No crepitus CVS: CPR in progress, asystole every 2 minutes on pulse check Respiratory: Arrived being ventilated via Peña airway Abdomen: Soft , distended Skin: Cold, cyanotic, model Extremities: No lower extremity edema. No Lacerations. No Rash Neuro: Unresponsive Psych: Unresponsive Course Course Course Narrative: When patient arrived to the emergency room, patient was still unresponsive, no spontaneous breaths, asystole. On both 5 follow-up ultrasound, there was no cardiac activity present. After 35 minutes of total CPR and has a sodium pulse checks despite multiple doses of epinephrine, time of was called at 17:25 Patient's son is here in the hospital, has been informed of the situation. [facility] has been called per patient's request. However, patient would prefer a Jehovah'S Witnessloop drier operator. Our quarter supervisor can we reached out to the local [employer], someone will be coming shortly The cause of is not 100% clear. Patient likely suffered from a cardiac event, [place] versus a pulmonary embolism. MDM - Cardiac Arrest/CPR Lab Data Labs: Lab Results 01/10/22 Range/Units 17:16 POC Glucose 288 H (60-115) mg/dL Discharge Plan Discharge Clinical Impression: Cardiac arrest Patient Disposition: Prescriptions: No Action melatonin 3 mg tablet 2 tab PO BEDTIME amlodipine 5 mg tablet 1 tab PO DAILY ropinirole 0.25 mg tablet 1 tab PO BEDTIME gabapentin 300 mg capsule 1 cap PO TID montelukast 10 mg tablet 1 tab PO BEDTIME furosemide 20 mg tablet 1 tab PO DAILY metoprolol succinate 25 mg tablet extended release 24 hr 1 tab PO DAILY albuterol sulfate 90 mcg/actuation HFA aerosol inhaler 2 puff inhalation Q4H PRN (Reason: wheezing) fluoxetine 20 mg capsule 1 cap PO DAILY loratadine 10 mg tablet 1 tab PO DAILY omeprazole 20 mg Capsule,Delayed Release(Dr/Ec) 20 mg PO BID@0630,1630 Qty: 60 0RF sucralfate 1 gram Tablet 1 g PO BID aspirin 81 mg Tablet,Delayed Release (Dr/Ec) 81 mg PO DAILY simethicone 80 mg Tablet,Chewable 80 mg PO QIDWMHS PRN (Reason: GAS PAIN)
--- NOTE | 2022-01-10 22:25 | PC.NURSE ---
family is requesting that pt goes to: [facility] [address] [place] [address] [place] [address]
== END 2022-01-10 22:25 | disposition expired ==
PROVIDERS: Emergency Provider Emergency Medicine
DX: I46.9 Cardiac arrest, cause unspecified (principal); I13.0 Hypertensive heart and chronic kidney disease with heart failure and stage 1 through stage 4 chronic kidney disease, or unspecified chronic kidney disease; N18.30 Chronic kidney disease, stage 3 unspecified; I50.9 Heart failure, unspecified; Z87.891 Personal history of nicotine dependence
CPT/HCPCS: 82947; 99283